=== PATIENT | female | born 1985 | race Caucasian/White ===

== ENCOUNTER → 2016-11-07 | Outpatient (CLI) | payer OTHER ==
[~2016-11-07] MED LIST: /LAMO15TA OR; /LAMO15TA PO; /OXCA30TA OR; /THIA10TA OR; ACET50TA PO; AMLO10TA OR; DEPA500T OR; DEPA500T PO; ENOX40SY SC; FOLI1TAB OR; METH40TA PO; MOTR200T40 PO; MULTIVIT PO; MYCOSTATIN POWDER TOP; PRED10TA2 OR; PRED20TA OR; PRED5TAB OR; PROZ40CA OR; PROZ40CA PO; TRAZ100T OR; TRAZ100T PO; TYLE325T5 PO; VITAPRTA PO
[2016-11-07 06:47] LABS: BASO % 0.6 % (0.0-1.0); EOS # 0.4 K/mm3 (0.0-0.50); EOS % 6.6 % (0.0-3.0); LARGE UNSTAINED CELL # 0.2 K/mm3 (0.0-0.4); LARGE UNSTAINED CELL % 3.5 % (0.0-4.0); LYMPH # 2.8 K/mm3 (1.5-4.5); LYMPH % 40.8 % (24.0-44.0); MEAN CORPUSCULAR HGB CONC 33.8 g/dl (32.0-36.5); MEAN CORPUSCULAR VOLUME 85.9 fl (80.0-96.0); MONO # 0.4 K/mm3 (0.0-0.8); MONO % 6.4 % (0.0-5.0); NEUTROPHILS # 2.9 K/mm3 (1.8-7.7); NEUTROPHILS % 42.2 % (36.0-66.0); PLATELET COUNT, AUTOMATED 277 k/mm3 (150-450); RED CELL DISTRIBUTION WIDTH 13.8 % (11.5-14.5); WHITE BLOOD COUNT 6.9 K/mm3 (4.0-10.0)
[2016-11-07 06:49] LABS: CONTROL LINE UCG INT CTR LINE PRESENT
[2016-11-07 07:10] LABS: ALBUMIN 3.5 GM/DL (3.2-5.2); ALBUMIN/GLOBULIN RATIO 0.78 (1.00-1.93); ALKALINE PHOSPHATASE 87 U/L (45-117); ALT/SGPT 291 U/L (12-78); ANION GAP 8 MEQ/L (8-16); AST/SGOT 237 U/L (15-37); BILIRUBIN,TOTAL 0.5 MG/DL (0.2-1.0); BLOOD UREA NITROGEN 14 MG/DL (7-18); CALCIUM LEVEL 8.8 MG/DL (8.5-10.1); CARBON DIOXIDE LEVEL 25 MEQ/L (21-32); CHLORIDE LEVEL 111 MEQ/L (98-107); CREATININE FOR GFR 0.81 MG/DL (0.55-1.02); GLOMERULAR FILTRATION RATE > 60.0 (>60); GLUCOSE, FASTING 101 MG/DL (70-105); POTASSIUM SERUM 4.2 MEQ/L (3.5-5.1); SODIUM LEVEL 144 MEQ/L (136-145)
[2016-11-07 10:59] LABS: HIV SCRN NEGATIVE (NEGATIVE); HIV SCRN1 NEGATIVE (NEGATIVE)
[2016-11-07 11:02] LABS: CONTROL LINE INT CTR LINE PRESENT
== END ==
LOC: M LAB 06:18
PROVIDERS: ATTEND Family Medicine
DX: Z13.9 Encounter for screening, unspecified (principal); F11.20 Opioid dependence, uncomplicated

== ENCOUNTER 2017-01-26 12:38 | Emergency (ER) | payer OTHER ==
[~2017-01-26] VITALS: Ht 167.6 cm; Wt 72.6 kg
[2017-01-26 12:38] VITALS: BP 133/84
[~2017-01-26 12:38] MED LIST changes: -MOTR200T40 PO; +MOTR200T44 PO
[2017-01-26] MEDS ORDERED: LIDOCAINE 1% MDV 20ML VIAL IM ONE (14:00)
== END 2017-01-26 14:33 | disposition home or self-care (01) ==
LOC: M ED 14:18
DX: S61.011A Laceration without foreign body of right thumb without damage to nail, initial encounter (principal); W25.XXXA Contact with sharp glass, initial encounter; Y92.89 Other specified places as the place of occurrence of the external cause; Y93.G1 Activity, food preparation and clean up; Y99.8 Other external cause status; Z79.899 Other long term (current) drug therapy; G40.909 Epilepsy, unspecified, not intractable, without status epilepticus; B19.20 Unspecified viral hepatitis C without hepatic coma; F41.9 Anxiety disorder, unspecified; F32.9 Major depressive disorder, single episode, unspecified; F11.20 Opioid dependence, uncomplicated

== ENCOUNTER → 2017-08-04 | Outpatient (REF) | payer OTHER ==
[2017-08-04 11:02] LABS: ALBUMIN 3.8 GM/DL (3.2-5.2); ALBUMIN/GLOBULIN RATIO 0.86 (1.00-1.93); BILIRUBIN,DIRECT 0.2 MG/DL (0.0-0.2); BILIRUBIN,TOTAL 0.6 MG/DL (0.2-1.0); TOTAL PROTEIN 8.2 GM/DL (6.4-8.2)
== END ==
LOC: M LAB REF 10:10
PROVIDERS: ATTEND Surgery
DX: Z51.81 Encounter for therapeutic drug level monitoring (principal)

== ENCOUNTER → 2017-08-24 | Outpatient (CLI) | payer MEDICAID, SELFPAY ==
[~2017-08-24] MED LIST changes: +IBUP80TA PO; +VIVI380I IM; +ZOFR20TA PO; +ZOFR4TAB3 PO
== END ==
LOC: M OUTALCOH 13:25
PROVIDERS: ATTEND Psychiatry & Neurology Psychiatry
DX: Z13.9 Encounter for screening, unspecified (principal); F11.20 Opioid dependence, uncomplicated

== ENCOUNTER 2017-09-23 14:00 | Outpatient (RCR) | payer MEDICAID, SELFPAY ==
[~2017-09-23 14:00] MED LIST changes: -IBUP80TA PO; -VIVI380I IM; -ZOFR20TA PO; -ZOFR4TAB3 PO
== END 2017-09-24 | disposition still patient (30) ==
LOC: M OUTALCOH 14:00
PROVIDERS: ATTEND Psychiatry & Neurology Psychiatry
DX: F11.20 Opioid dependence, uncomplicated (principal); F12.20 Cannabis dependence, uncomplicated; F13.20 Sedative, hypnotic or anxiolytic dependence, uncomplicated

== ENCOUNTER 2017-09-28 15:21 | Outpatient (RCR) | payer OTHER, MEDICAID, SELFPAY | END 2017-10-25 | LOC: M OUTALCOH 15:21 | DX: F11.20 Opioid dependence, uncomplicated (principal); F12.20 Cannabis dependence, uncomplicated; F13.20 Sedative, hypnotic or anxiolytic dependence, uncomplicated ==

== ENCOUNTER 2017-10-06 19:00 | Emergency (ER) | payer MEDICAID, OTHER ==
[~2017-10-06] VITALS: Ht 167.6 cm; Wt 77.3 kg
[2017-10-06] MEDS ORDERED: VIVI380I IM (19:09)
[2017-10-06] MEDS ORDERED: ZOFR20TA PO (19:09)
[2017-10-06] MEDS ORDERED: NS 1,000 ML IV ONE (20:30)
[2017-10-06] MEDS ORDERED: ONDANSETRON 4MG/2ML VIAL (J2405) IV ONE (20:30)
[2017-10-06] MEDS ORDERED: KETOROLAC 30 MG/ML VIAL (J1885) IV ONE (20:30)
[2017-10-06 20:59] LABS: MUCUS, URINE RFX SMALL (NEGATIVE); SPECIFIC GRAVITY UR AUTO RFX 1.029 (1.002-1.035); SQUAM EPITHELIAL CELL UR AURFX 5 /HPF (0-6)
[2017-10-06 21:04] LABS: BASO # 0.1 10^3/uL (0.0-0.2); BASO % 0.4 % (0.0-1.0); EOS # 0.1 10^3/uL (0.0-0.50); EOS % 0.9 % (0.0-3.0); IMMATURE GRANULOCYTE % 0.3 % (0-0); LYMPH # 2.7 10^3/uL (1.5-4.5); MEAN CORPUSCULAR HEMOGLOBIN 30.5 pg (27.0-33.0); MEAN CORPUSCULAR VOLUME 89.7 fl (80.0-96.0); MONO # 0.7 10^3/uL (0.0-0.8); MONO % 6.1 % (0.0-5.0); NEUTROPHILS # 7.6 10^3/uL (1.8-7.7); NEUTROPHILS % 68.3 % (36.0-66.0); PLATELET COUNT, AUTOMATED 279 10^3/uL (150-450); RED CELL DISTRIBUTION WIDTH 12.5 % (11.5-14.5); WHITE BLOOD COUNT 11.1 10^3/uL (4.0-10.0)
[2017-10-06 21:35] LABS: ALBUMIN 4.1 GM/DL (3.2-5.2); ALBUMIN/GLOBULIN RATIO 0.76 (1.00-1.93); ALKALINE PHOSPHATASE 99 U/L (45-117); ALT/SGPT 308 U/L (12-78); AMYLASE 62 U/L (25-115); ANION GAP 8 MEQ/L (8-16); AST/SGOT 150 U/L (7-37); BILIRUBIN,DIRECT 0.2 MG/DL (0.0-0.2); BILIRUBIN,TOTAL 0.6 MG/DL (0.2-1.0); BLOOD UREA NITROGEN 17 MG/DL (7-18); CALCIUM LEVEL 9.2 MG/DL (8.5-10.1); CARBON DIOXIDE LEVEL 26 MEQ/L (21-32); CHLORIDE LEVEL 107 MEQ/L (98-107); CREATININE FOR GFR 0.79 MG/DL (0.55-1.02); GLOMERULAR FILTRATION RATE > 60.0 (>60); GLUCOSE, FASTING 96 MG/DL (70-105); POTASSIUM SERUM 4.1 MEQ/L (3.5-5.1); SODIUM LEVEL 141 MEQ/L (136-145); TOTAL PROTEIN 9.5 GM/DL (6.4-8.2)
--- NOTE | 2017-10-06 21:40 | REPUSA ---
Clinical history: Right upper quadrant pain. Findings: The pancreas is limited in visualization secondary to overlying bowel gas, but appears cinda sly unremarkable. The liver demonstrates uniform echotexture and echogenicity, with no mass lesions. The gallbladder contains a small gallstone. There is no gallbladder wall thickening. The common bile duct measures 5 mm and is within normal limits. There is no ascites. The right kidney measures 10.9 c m in length and is unremarkable. Mild diffuse cortical thinning is noted. Impression: 1. Cholelithiasis without evidence of acute cholecystitis. 2. Mild nonspecific thinning of the renal cortex of the right kidney. Follow-up is recommended as cli nically indicated.
[2017-10-06] MEDS ORDERED: ZOFR4TAB3 PO (22:03)
[2017-10-06] MEDS ORDERED: IBUP80TA PO (22:03)
[2017-10-06 22:22] VITALS: BP 115/74
== END 2017-10-06 22:24 | disposition home or self-care (01) ==
LOC: M ED 19:00
DX: K80.70 Calculus of gallbladder and bile duct without cholecystitis without obstruction (principal); E86.0 Dehydration; R56.9 Unspecified convulsions; Z79.899 Other long term (current) drug therapy; Z87.42 Personal history of other diseases of the female genital tract; Z87.19 Personal history of other diseases of the digestive system
CPT/HCPCS: 76705; 80048; 80076; 81001; 81025; 82150; 83690; 85025; 96374; 96375; 99284; J1885; J2405

== ENCOUNTER → 2017-10-15 | Outpatient (REF) | payer OTHER, MEDICAID ==
[~2017-10-15] MED LIST changes: +IBUP80TA PO; +VIVI380I IM; +ZOFR20TA PO; +ZOFR4TAB3 PO
[2017-10-16 10:34] LABS: HEPATITIS B SURFACE ANTIBODY POSITIVE (POSITIVE)
[2017-10-21 08:06] LABS: HEPATITIS C QUANTITATION 3293710 IU/mL (.)
== END ==
LOC: M LAB REF 18:26
PROVIDERS: ATTEND Family Medicine Addiction Medicine
DX: B18.2 Chronic viral hepatitis C (principal)

== ENCOUNTER 2017-10-27 13:59 | Outpatient (RCR) | payer MEDICAID | END 2017-11-25 | LOC: M OUTALCOH 13:59 | DX: F11.20 Opioid dependence, uncomplicated (principal); F12.20 Cannabis dependence, uncomplicated; F13.20 Sedative, hypnotic or anxiolytic dependence, uncomplicated ==

== ENCOUNTER 2017-11-04 08:27 | Day surgery (SDC) | payer OTHER ==
[~2017-11-04 08:27] MED LIST changes: -/LAMO15TA OR; -/LAMO15TA PO; -/OXCA30TA OR; -/THIA10TA OR; -ACET50TA PO; -AMLO10TA OR; -DEPA500T OR; -DEPA500T PO; -ENOX40SY SC; -FOLI1TAB OR; -IBUP80TA PO; +LIDOCAINE 2% INJ 100 MG/5 ML SDV (FOR ANES.) As Ordered; -METH40TA PO; +MIDAZOLAM INJ 2 MG/2 ML VIAL (J2250) As Ordered; -MOTR200T44 PO; -MULTIVIT PO; -MYCOSTATIN POWDER TOP; -PRED10TA2 OR; -PRED20TA OR; -PRED5TAB OR; +PROPOFOL 200 MG/20 ML VIAL As Ordered; -PROZ40CA OR; -PROZ40CA PO; +ROCURONIUM BROMIDE 50 MG/5 ML VIAL As Ordered; -TRAZ100T OR; -TRAZ100T PO; -TYLE325T5 PO; -VITAPRTA PO; -VIVI380I IM; -ZOFR20TA PO; -ZOFR4TAB3 PO; +fentaNYL 250 MCG/5 ML INJECTION (J3010) As Ordered
[2017-11-04 08:59] LABS: CONTROL LINE UCG INT CTR LINE PRESENT; URINE PREG TEST NEGATIVE (NEGATIVE)
[2017-11-04] MEDS: LR 1,000 ML IV (09:24)
[2017-11-04] MEDS ORDERED: KETAMINE HCL 200 MG/20 ML VIAL As Ordered (09:30)
[2017-11-04] MEDS: AMPICILLIN SOD/SULBACTAM SOD 3 GM in D5W MINI-BAG PLUS 100 ML IV (09:40)
[2017-11-04] MEDS ORDERED: GLYCOPYRROLATE INJ 0.2 MG/ML 2 ML VIAL As Ordered ×2 (09:53→10:26)
[2017-11-04] MEDS ORDERED: ESMOLOL INJ 100MG/10ML VIAL As Ordered (10:02)
[2017-11-04] MEDS ORDERED: NEOSTIGMINE 10 MG/10 ML VIAL (J2710) As Ordered (10:26)
[2017-11-04] MEDS ORDERED: KETOROLAC 60 MG/2 ML VIAL (J1885) As Ordered (10:26)
[2017-11-04] MEDS ORDERED: ONDANSETRON 4MG/2ML VIAL (J2405) As Ordered ×2 (10:26→12:23)
[2017-11-04] MEDS ORDERED: dexameTHASONE 4 MG/ML 1ML VIAL (J1100) As Ordered (10:26)
[2017-11-04] MEDS: BUPIVACAINE HCL 0.25% 30 ML VIAL As Ordered (10:50)
[2017-11-04] MEDS: LIDOCAINE 1% SDV INJ 30 ML VIAL As Ordered (10:50)
[2017-11-04] MEDS ORDERED: ACETAMINOPHEN TAB 650MG DOSE (2X325MG) PO (11:30)
[2017-11-04] MEDS ORDERED: KETOROLAC 30 MG/ML VIAL (J1885) IV (11:30)
[2017-11-04] MEDS ORDERED: ACETAMINOPHEN TAB 650MG DOSE (2X325MG) As Ordered (11:37)
[2017-11-04] MEDS ORDERED: ACETAMINOPHEN 500 MG TAB As Ordered (11:39)
[2017-11-04] MEDS: ACETAMINOPHEN 500 MG TAB PO (11:45)
[2017-11-04] MEDS: ONDANSETRON 4MG/2ML VIAL (J2405) IV (12:35)
== END 2017-11-04 14:00 | disposition home or self-care (01) ==
LOC: M SDC 08:27
DX: K80.18 Calculus of gallbladder with other cholecystitis without obstruction (principal); F41.9 Anxiety disorder, unspecified; F32.9 Major depressive disorder, single episode, unspecified; B19.20 Unspecified viral hepatitis C without hepatic coma; F31.9 Bipolar disorder, unspecified; Z86.59 Personal history of other mental and behavioral disorders
CPT/HCPCS: 47562

== ENCOUNTER 2017-12-09 16:00 | Outpatient (RCR) | payer MEDICAID | END 2017-12-23 | disposition still patient (30) | LOC: M OUTALCOH 12-10 13:00 | DX: F11.20 Opioid dependence, uncomplicated (principal); F12.20 Cannabis dependence, uncomplicated; F13.20 Sedative, hypnotic or anxiolytic dependence, uncomplicated ==

== ENCOUNTER → 2017-12-17 | Outpatient (REF) | payer OTHER ==
[2017-12-17 20:08] LABS: CHLAMYDIA DNA AMPLIFICATION NEGATIVE (NEGATIVE); GC DNA AMPLIFICATION NEGATIVE (NEGATIVE)
== END ==
LOC: M SFHCWAGY 17:05
DX: Z11.3 Encounter for screening for infections with a predominantly sexual mode of transmission (principal)
CPT/HCPCS: 87591

== ENCOUNTER → 2017-12-17 | Outpatient (REF) | payer OTHER ==
[2017-12-23 14:13] LABS: HPV HYBRID CAPTURE II Negative (Negative)
== END ==
LOC: M SFHCWAGY 15:44
DX: Z11.3 Encounter for screening for infections with a predominantly sexual mode of transmission (principal)
CPT/HCPCS: 88142

== ENCOUNTER → 2017-12-21 | Outpatient (REF) | payer OTHER, MEDICARE ==
[2017-12-21 16:59] LABS: HIV 1&2 SCREEN CENTAUR NEGATIVE (NEGATIVE)
== END ==
LOC: M SFHCPLAZ 13:46
DX: B18.2 Chronic viral hepatitis C (principal)
CPT/HCPCS: 84460

== ENCOUNTER → 2017-12-22 | Outpatient (CLI) | payer OTHER | LOC: M RAD 12:03 | DX: Z36.9 Encounter for antenatal screening, unspecified (principal); Z3A.09 9 weeks gestation of pregnancy | CPT/HCPCS: 76801 ==

== ENCOUNTER → 2017-12-25 | Outpatient (CLI) | payer MEDICAID ==
[2017-12-25 19:44] LABS: RHEUMATOID FACTOR QUANT < 10.0 IU/ML (0-15.0)
== END ==
LOC: M WUC 15:53
DX: Z01.83 Encounter for blood typing (principal)
CPT/HCPCS: 36415

== ENCOUNTER 2017-12-30 16:00 | Outpatient (RCR) | payer MEDICAID | END 2018-01-23 | LOC: M OUTALCOH 01-06 16:00 | DX: F11.20 Opioid dependence, uncomplicated (principal); F12.20 Cannabis dependence, uncomplicated; F13.20 Sedative, hypnotic or anxiolytic dependence, uncomplicated ==

== ENCOUNTER → 2018-01-05 | Outpatient (REF) | payer MEDICAID ==
[2018-01-15 14:20] LABS: AMPHETAMINES URINE REFLEX NEGATIVE (NEGATIVE); BARBITURATES URINE REFLEX NEGATIVE (NEGATIVE); BENZODIAZEPINES URINE REFLEX NEGATIVE (NEGATIVE); CANNABINOIDS URINE REFLEX NEGATIVE (NEGATIVE); COCAINE METABOLITE URINE REFLE NEGATIVE (NEGATIVE); METHADONE URINE REFLEX NEGATIVE (NEGATIVE); OPIATES URINE REFLEX NEGATIVE (NEGATIVE); PHENCYCLIDINE URINE REFLEX NEGATIVE (NEGATIVE)
== END ==
LOC: M OUTALCOH 01-15 12:50
DX: F12.20 Cannabis dependence, uncomplicated (principal); F11.20 Opioid dependence, uncomplicated; F13.20 Sedative, hypnotic or anxiolytic dependence, uncomplicated
CPT/HCPCS: 80307

== ENCOUNTER → 2018-01-06 | Outpatient (CLI) | payer MEDICAID ==
[2018-01-06 17:24] LABS: CHOLESTEROL LEVEL 196 MG/DL (<200); HDL CHOLESTEROL 46 MG/DL (>40); LDL CHOLESTEROL 122.6 MG/DL (<100); NON-HDL-C 150 MG/DL; TRIGLYCERIDES LEVEL 137 MG/DL (<150)
== END ==
LOC: M WUC 10:42
DX: Z79.899 Other long term (current) drug therapy (principal)
CPT/HCPCS: 80061

== ENCOUNTER 2018-02-03 16:00 | Outpatient (RCR) | payer MEDICAID | END 2018-02-22 | LOC: M OUTALCOH 02-18 16:00 | DX: F11.20 Opioid dependence, uncomplicated (principal); F12.20 Cannabis dependence, uncomplicated; F13.20 Sedative, hypnotic or anxiolytic dependence, uncomplicated ==

== ENCOUNTER 2018-03-05 15:00 | Outpatient (RCR) | payer MEDICAID | END 2018-03-25 | LOC: M OUTALCOH 15:00 | DX: F11.20 Opioid dependence, uncomplicated (principal); F12.20 Cannabis dependence, uncomplicated; F13.20 Sedative, hypnotic or anxiolytic dependence, uncomplicated ==

== ENCOUNTER 2018-04-01 16:00 | Outpatient (RCR) | payer MEDICAID | END 2018-04-24 | LOC: M OUTALCOH 04-07 16:00 | DX: F11.20 Opioid dependence, uncomplicated (principal); F12.20 Cannabis dependence, uncomplicated; F13.20 Sedative, hypnotic or anxiolytic dependence, uncomplicated ==

== ENCOUNTER 2018-05-18 11:42 | Outpatient (RCR) | payer MEDICAID | END 2018-05-25 | LOC: M OUTALCOH 11:42 | DX: F11.20 Opioid dependence, uncomplicated (principal); F12.20 Cannabis dependence, uncomplicated; F13.20 Sedative, hypnotic or anxiolytic dependence, uncomplicated ==

== ENCOUNTER → 2018-05-27 | Outpatient (REF) | payer MEDICAID, OTHER ==
[2018-05-27 14:45] LABS: CHLAMYDIA DNA AMPLIFICATION NEGATIVE (NEGATIVE); GC DNA AMPLIFICATION NEGATIVE (NEGATIVE)
== END ==
LOC: M SFHCWAGY 11:55
DX: Z11.3 Encounter for screening for infections with a predominantly sexual mode of transmission (principal)
CPT/HCPCS: 87591

== ENCOUNTER 2018-07-06 11:04 | Outpatient (RCR) | payer MEDICAID | END 2018-07-25 | LOC: M OUTALCOH 11:04 | DX: F11.20 Opioid dependence, uncomplicated (principal); F12.20 Cannabis dependence, uncomplicated; F13.20 Sedative, hypnotic or anxiolytic dependence, uncomplicated ==

== ENCOUNTER 2018-07-26 14:20 | Outpatient (RCR) | payer MEDICAID | END 2018-08-25 | LOC: M OUTALCOH 08-11 15:00 | DX: F11.20 Opioid dependence, uncomplicated (principal); F12.20 Cannabis dependence, uncomplicated; F13.20 Sedative, hypnotic or anxiolytic dependence, uncomplicated ==

== ENCOUNTER 2018-08-25 14:54 | Emergency (ER) | payer MEDICAID ==
[2018-08-25 17:13] LABS: BASO % 0.3 % (0.0-1.0); EOS # 0.1 10^3/uL (0.0-0.50); EOS % 0.4 % (0.0-3.0); HEMOGLOBIN 15.9 g/dl (12.0-15.5); IMMATURE GRANULOCYTE % 0.4 % (0-3.0); LYMPH # 2.9 10^3/uL (1.5-4.5); LYMPH % 22.4 % (24.0-44.0); MEAN CORPUSCULAR HEMOGLOBIN 31.2 pg (27.0-33.0); MEAN CORPUSCULAR HGB CONC 35.3 g/dl (32.0-36.5); MEAN CORPUSCULAR VOLUME 88.4 fl (80.0-96.0); MONO % 7.8 % (0.0-5.0); NEUTROPHILS # 8.8 10^3/uL (1.8-7.7); NEUTROPHILS % 68.7 % (36.0-66.0); PLATELET COUNT, AUTOMATED 274 10^3/uL (150-450); RED BLOOD COUNT 5.09 10^6/uL (4.00-5.40); RED CELL DISTRIBUTION WIDTH 13.4 % (11.5-14.5); WHITE BLOOD COUNT 12.8 10^3/uL (4.0-10.0)
[2018-08-25 17:25] LABS: CONTROL LINE HCG INT CTR LINE PRESENT; HCG, SERUM QUALITATIVE NEGATIVE (NEGATIVE)
[2018-08-25 17:27] LABS: ANION GAP 2 MEQ/L (8-16); BLOOD UREA NITROGEN 12 MG/DL (7-18); CALCIUM LEVEL 9.4 MG/DL (8.5-10.1); CARBON DIOXIDE LEVEL 32 MEQ/L (21-32); CHLORIDE LEVEL 105 MEQ/L (98-107); CREATININE FOR GFR 0.75 MG/DL (0.55-1.30); GLOMERULAR FILTRATION RATE > 60.0 (>60); GLUCOSE, FASTING 99 MG/DL (70-100); POTASSIUM SERUM 3.8 MEQ/L (3.5-5.1); SODIUM LEVEL 139 MEQ/L (136-145)
[2018-08-25 17:28] LABS: D-DIMER QUANT 272.2 ng/ml (<500)
== END 2018-08-25 18:04 | disposition home or self-care (01) ==
LOC: M ED 14:54
DX: J06.9 Acute upper respiratory infection, unspecified (principal); Z86.69 Personal history of other diseases of the nervous system and sense organs; F11.21 Opioid dependence, in remission; Z83.3 Family history of diabetes mellitus; Z82.3 Family history of stroke; Z79.52 Long term (current) use of systemic steroids; Z79.899 Other long term (current) drug therapy
CPT/HCPCS: 71046

== ENCOUNTER 2018-09-23 13:04 | Outpatient (RCR) | payer MEDICAID | END 2018-09-24 | LOC: M OUTALCOH 13:04 | DX: F11.20 Opioid dependence, uncomplicated (principal); F12.20 Cannabis dependence, uncomplicated; F13.20 Sedative, hypnotic or anxiolytic dependence, uncomplicated ==

== ENCOUNTER 2018-11-08 10:17 | Outpatient (RCR) | payer MEDICAID ==
[~2018-11-08 10:17] MED LIST changes: +/LAMO15TA OR; +/LAMO15TA PO; +/OXCA30TA OR; +/THIA10TA OR; +AMLO10TA OR; +ARIP1TAB4; +DEPA500T OR; +DEPA500T PO; +ENOX40SY SC; +FOLI1TAB OR; +IBUP-1022 PO; +IBUP80TA PO; -LIDOCAINE 2% INJ 100 MG/5 ML SDV (FOR ANES.) As Ordered; +MAPA500T2 PO; +METH40TA PO; -MIDAZOLAM INJ 2 MG/2 ML VIAL (J2250) As Ordered; +MOTR200T44 PO; +MULTIVIT PO; +MYCOSTATIN POWDER TOP; +PRED10TA2 OR; +PRED20TA; +PRED20TA OR; +PRED5TAB OR; -PROPOFOL 200 MG/20 ML VIAL As Ordered; +PROZ40CA OR; +PROZ40CA PO; -ROCURONIUM BROMIDE 50 MG/5 ML VIAL As Ordered; +TRAZ100T OR; +TRAZ100T PO; +TYLE325T5 PO; +VENL150C43; +VENTAER; +VITAPRTA PO; +VIVI380I IM; +ZOFR4TAB14 PO; +ZOFR4TAB16 PO; -fentaNYL 250 MCG/5 ML INJECTION (J3010) As Ordered
== END 2018-11-25 ==
LOC: M OUTALCOH 10:17
PROVIDERS: ATTEND Psychiatry & Neurology Psychiatry
DX: F11.20 Opioid dependence, uncomplicated (principal); F12.20 Cannabis dependence, uncomplicated; F13.20 Sedative, hypnotic or anxiolytic dependence, uncomplicated

== ENCOUNTER 2018-12-22 09:58 | Outpatient (RCR) | payer MEDICAID | END 2018-12-23 | LOC: M OUTALCOH 09:58 | PROVIDERS: ATTEND Psychiatry & Neurology Psychiatry | DX: F11.20 Opioid dependence, uncomplicated (principal); F12.20 Cannabis dependence, uncomplicated; F13.20 Sedative, hypnotic or anxiolytic dependence, uncomplicated ==

== ENCOUNTER → 2018-12-22 | Outpatient (REF) | payer MEDICAID | LOC: M LABDRAW1 11:20 | PROVIDERS: ATTEND Psychiatry & Neurology Psychiatry | DX: F11.20 Opioid dependence, uncomplicated (principal) ==

== ENCOUNTER 2019-02-11 09:05 | Outpatient (RCR) | payer MEDICAID ==
[~2019-02-11 09:05] MED LIST changes: -/LAMO15TA OR; -/LAMO15TA PO; -/OXCA30TA OR; -ENOX40SY SC; +LAMI1TAB8 OR; +LAMI1TAB8 PO; +LOVE1INJ SC; +TRIL1TAB OR
[2019-02-18] MEDS ORDERED: GABA-1171 PO (20:08)
[2019-02-18] MEDS ORDERED: AUGM875T28 PO (22:05)
[2019-02-20] MEDS ORDERED: REGL10TA6 PO (20:03)
== END 2019-02-22 ==
LOC: M OUTALCOH 09:05
PROVIDERS: ATTEND Psychiatry & Neurology Psychiatry
DX: F11.20 Opioid dependence, uncomplicated (principal); F12.20 Cannabis dependence, uncomplicated; F13.20 Sedative, hypnotic or anxiolytic dependence, uncomplicated

== ENCOUNTER 2019-02-18 19:54 | Emergency (ER) | payer MEDICAID, SELFPAY ==
[~2019-02-18] VITALS: Ht 167.6 cm; Wt 84.1 kg
[2019-02-18] MEDS ORDERED: GABA-1171 PO (20:08)
[2019-02-18] MEDS ORDERED: ADACEL/BOOSTRIX VACCINE (DIPHTH/PERTUSS/ACELL/TETANUS)0.5ML SYR (90715) IM ONE (21:00)
[2019-02-18] MEDS ORDERED: LIDOCAINE W/EPINEPHRINE 1% 20ML VIAL SC ONE (21:15)
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
[2019-02-18] MEDS ORDERED: AUGM875T28 PO (22:05)
[2019-02-18] MEDS ORDERED: AUGMENTIN 875 MG TAB PO ONE (22:15)
[2019-02-18 22:27] VITALS: BP 141/94
== END 2019-02-18 22:28 | disposition home or self-care (01) ==
LOC: M ED 19:54
DX: S01.81XA Laceration without foreign body of other part of head, initial encounter (principal); S01.01XA Laceration without foreign body of scalp, initial encounter; S02.2XXA Fracture of nasal bones, initial encounter for closed fracture; Y04.8XXA Assault by other bodily force, initial encounter; Y92.410 Unspecified street and highway as the place of occurrence of the external cause; Y93.9 Activity, unspecified; Y99.9 Unspecified external cause status; F31.9 Bipolar disorder, unspecified; B15.9 Hepatitis A without hepatic coma; B19.20 Unspecified viral hepatitis C without hepatic coma; Z79.899 Other long term (current) drug therapy

== ENCOUNTER 2019-02-20 17:22 | Emergency (ER) | payer MEDICAID, SELFPAY ==
[~2019-02-20] VITALS: Ht 167.6 cm; Wt 81.8 kg
[~2019-02-20 17:22] MED LIST changes: +AUGM875T28 PO; +GABA-1171 PO
[2019-02-20] MEDS ORDERED: diphenhydrAMINE INJ 50MG/ML VIAL (J1200) IV STA (18:29)
[2019-02-20] MEDS ORDERED: KETOROLAC 30 MG/ML VIAL (J1885) IV ONE (18:30)
[2019-02-20] MEDS ORDERED: METOCLOPRAMIDE INJ 10MG/2ML VIAL (J2765) IV ONE (18:30)
[2019-02-20] MEDS ORDERED: NS 1,000 ML IV ONE (18:30)
[2019-02-20] MEDS ORDERED: REGL10TA6 PO (20:03)
[2019-02-20 20:29] VITALS: BP 101/63
== END 2019-02-20 21:00 | disposition home or self-care (01) ==
LOC: EEVIPCON 17:22 → M ED 17:22
DX: F07.81 Postconcussional syndrome (principal); B19.20 Unspecified viral hepatitis C without hepatic coma; Z79.899 Other long term (current) drug therapy; F11.10 Opioid abuse, uncomplicated; F17.210 Nicotine dependence, cigarettes, uncomplicated
CPT/HCPCS: 96361; 96374; 96375; 99284; J1200; J1885; J2765

== ENCOUNTER → 2019-02-23 | Outpatient (REF) | payer MEDICAID, SELFPAY ==
[~2019-02-23] MED LIST changes: +LEVA1TAB2 PO; +METO10TA2 PO; +REGL10TA6 PO; +TOPA1TAB PO
[2019-02-23 18:00] LABS: APPEARANCE, URINE CLEAR (CLEAR); BACTERIA, URINE AUTO NEGATIVE (NEGATIVE); BILIRUBIN, URINE AUTO NEGATIVE (NEGATIVE); BLOOD, URINE BLOOD NEGATIVE (NEGATIVE); COLOR, URINE YELLOW (YELLOW); GLUCOSE, URINE (UA) AUTO NEGATIVE (NEGATIVE); KETONE, URINE AUTO NEGATIVE (NEGATIVE); LEUKOCYTE ESTERASE, URINE AUTO NEGATIVE (NEGATIVE); NITRITE, URINE AUTO NEGATIVE (NEGATIVE); PROTEIN, URINE AUTO NEGATIVE (NEGATIVE); RBC, URINE AUTO 1 /HPF (0-3); SPECIFIC GRAVITY URINE AUTO 1.016 (1.002-1.035); SQUAMOUS EPITHELIAL CELL UR AU 1 /HPF (0-6); WBC, URINE AUTO 0 /HPF (0-3)
== END ==
LOC: M LAB REF 16:42
PROVIDERS: ATTEND Family Medicine Adult Medicine
DX: R35.0 Frequency of micturition (principal); R30.0 Dysuria

== ENCOUNTER 2019-02-24 14:32 | Inpatient (IN) | payer MEDICAID, SELFPAY ==
[~2019-02-24] VITALS: Ht 165.1 cm; Wt 89.7 kg
[~2019-02-24 14:32] MED LIST changes: -LEVA1TAB2 PO; -METO10TA2 PO; -TOPA1TAB PO
[2019-02-24] MEDS ORDERED: NS 1,000 ML IV ONE (15:30)
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
[2019-02-24 16:12] LABS: BASO # 0.1 10^3/uL (0.0-0.2); BASO % 0.5 % (0.0-1.0); EOS # 0.4 10^3/uL (0.0-0.50); EOS % 4.5 % (0.0-3.0); HEMATOCRIT 41.7 % (36.0-47.0); HEMOGLOBIN 14.2 g/dl (12.0-15.5); LYMPH # 1.7 10^3/uL (1.5-4.5); MEAN CORPUSCULAR HEMOGLOBIN 31.5 pg (27.0-33.0); MEAN CORPUSCULAR HGB CONC 34.1 g/dl (32.0-36.5); MEAN CORPUSCULAR VOLUME 92.5 fl (80.0-96.0); MONO # 0.7 10^3/uL (0.0-0.8); MONO % 7.2 % (0.0-5.0); NEUTROPHILS # 6.9 10^3/uL (1.8-7.7); NEUTROPHILS % 70.4 % (36.0-66.0); PLATELET COUNT, AUTOMATED 212 10^3/uL (150-450); RED BLOOD COUNT 4.51 10^6/uL (4.00-5.40); WHITE BLOOD COUNT 9.8 10^3/uL (4.0-10.0)
--- NOTE | 2019-02-24 16:50 | REP ---
Chest two views HISTORY: Altered mental status Comparison: None The lungs are clear. The heart is normal in size. The pulmonary vasculature is normal in appearance. The bony structure is intact. IMPRESSION: No acute disease. Electronically Signed by Jareth Hogue MD 02/24/2019 04:41 P
[2019-02-24] MEDS ORDERED: AUGM875T28 PO (16:56)
[2019-02-24] MEDS ORDERED: METO10TA2 PO (16:56)
[2019-02-24] MEDS ORDERED: GABA-1171 PO (16:56)
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
[2019-02-24 17:23] LABS: APPEARANCE, URINE CLEAR (CLEAR); BACTERIA, URINE AUTO NEGATIVE (NEGATIVE); BILIRUBIN, URINE AUTO NEGATIVE (NEGATIVE); BLOOD, URINE BLOOD NEGATIVE (NEGATIVE); COLOR, URINE STRAW (YELLOW); GLUCOSE, URINE (UA) AUTO NEGATIVE (NEGATIVE); KETONE, URINE AUTO NEGATIVE (NEGATIVE); LEUKOCYTE ESTERASE, URINE AUTO NEGATIVE (NEGATIVE); NITRITE, URINE AUTO NEGATIVE (NEGATIVE); PROTEIN, URINE AUTO NEGATIVE (NEGATIVE); RBC, URINE AUTO 1 /HPF (0-3); SPECIFIC GRAVITY URINE AUTO 1.005 (1.002-1.035); SQUAMOUS EPITHELIAL CELL UR AU 5 /HPF (0-6); UROBILINOGEN, URINE AUTO 0.2 mg/dL (0.0-2.0); WBC, URINE AUTO 1 /HPF (0-3)
[2019-02-24 18:20] VITALS: BP 132/67
[2019-02-24] MEDS ORDERED: METOCLOPRAMIDE 10 MG TAB PO PRN (18:30)
[2019-02-24 18:41] LABS: BLOOD UREA NITROGEN 9 MG/DL (7-18); CALCIUM LEVEL 8.4 MG/DL (8.5-10.1); CARBON DIOXIDE LEVEL 26 MEQ/L (21-32); CHLORIDE LEVEL 107 MEQ/L (98-107); CREATININE FOR GFR 0.82 MG/DL (0.55-1.30); GLOMERULAR FILTRATION RATE > 60.0 (>60); GLUCOSE, FASTING 95 MG/DL (70-100); POTASSIUM SERUM 3.9 MEQ/L (3.5-5.1); SODIUM LEVEL 138 MEQ/L (136-145)
[2019-02-24 18:44] LABS: ALBUMIN 3.2 GM/DL (3.2-5.2); ALT/SGPT 192 U/L (12-78); BILIRUBIN,TOTAL 0.6 MG/DL (0.2-1.0); BLOOD UREA NITROGEN 9 MG/DL (7-18); CALCIUM LEVEL 8.3 MG/DL (8.5-10.1); CARBON DIOXIDE LEVEL 25 MEQ/L (21-32); CHLORIDE LEVEL 107 MEQ/L (98-107); CREATININE FOR GFR 0.83 MG/DL (0.55-1.30); GLOMERULAR FILTRATION RATE > 60.0 (>60); GLUCOSE, FASTING 97 MG/DL (70-100); POTASSIUM SERUM 3.9 MEQ/L (3.5-5.1); SODIUM LEVEL 138 MEQ/L (136-145)
[2019-02-24 18:54] LABS: PROLACTIN 4.4 NG/ML
[2019-02-24] MEDS: ACETAMINOPHEN TAB 650MG DOSE (2X325MG) PO PRN (18:59)
[2019-02-24 19:23] VITALS: BP 128/67
[2019-02-24] MEDS: D5W/0.45% SODIUM CHLORIDE 1,000 ML IV SCH (19:57)
[2019-02-24] MEDS: TOPIRAMATE (TopAMAX) 25 MG TAB PO SCH (20:10)
[2019-02-24] MEDS: GABAPENTIN 100 MG CAP PO SCH (20:11)
[2019-02-24] MEDS: AUGMENTIN 875 MG TAB PO SCH (20:11)
[2019-02-24 23:18] VITALS: BP 136/82
[2019-02-25 03:40] VITALS: BP 105/69
[2019-02-25] MEDS: D5W/0.45% SODIUM CHLORIDE 1,000 ML IV SCH (03:50)
[2019-02-25] MEDS: ACETAMINOPHEN TAB 650MG DOSE (2X325MG) PO PRN ×3 (04:07→17:29)
[2019-02-25 04:29] LABS: HEMOGLOBIN 13.8 g/dl (12.0-15.5); MEAN CORPUSCULAR HEMOGLOBIN 31.5 pg (27.0-33.0); MEAN CORPUSCULAR HGB CONC 32.1 g/dl (32.0-36.5); MEAN CORPUSCULAR VOLUME 98.2 fl (80.0-96.0); PLATELET COUNT, AUTOMATED 176 10^3/uL (150-450); RED BLOOD COUNT 4.38 10^6/uL (4.00-5.40); WHITE BLOOD COUNT 6.5 10^3/uL (4.0-10.0)
[2019-02-25 04:38] LABS: BLOOD UREA NITROGEN 5 MG/DL (7-18); CALCIUM LEVEL 7.6 MG/DL (8.5-10.1); CARBON DIOXIDE LEVEL 21 MEQ/L (21-32); CHLORIDE LEVEL 111 MEQ/L (98-107); CREATININE FOR GFR 0.74 MG/DL (0.55-1.30); GLOMERULAR FILTRATION RATE > 60.0 (>60); GLUCOSE, FASTING 98 MG/DL (70-100); POTASSIUM SERUM 3.7 MEQ/L (3.5-5.1); SODIUM LEVEL 136 MEQ/L (136-145)
[2019-02-25 06:33] LABS: AMPHETAMINES LEVEL URINE NEGATIVE (NEGATIVE); BARBITURATES URINE NEGATIVE (NEGATIVE); BENZODIAZEPINES URINE POSITIVE (NEGATIVE); CANNABINOIDS URINE POSITIVE (NEGATIVE); COCAINE METABOLITE URINE NEGATIVE (NEGATIVE); METHADONE URINE NEGATIVE (NEGATIVE); OPIATES URINE NEGATIVE (NEGATIVE); PHENCYCLIDINE URINE NEGATIVE (NEGATIVE)
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
[2019-02-25 08:00] VITALS: BP 104/66
[2019-02-25] MEDS: AUGMENTIN 875 MG TAB PO SCH ×2 (09:03→19:59)
[2019-02-25] MEDS: TOPIRAMATE (TopAMAX) 25 MG TAB PO SCH ×2 (09:03→20:00)
[2019-02-25] MEDS: GABAPENTIN 100 MG CAP PO SCH ×3 (09:03→19:59)
[2019-02-25 12:00] VITALS: BP 118/80
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
--- NOTE | 2019-02-25 12:47 | NUR ---
Pt w/ generalized weakness of oral motor structures and overall fatigue. Otherwise, no signs of oropharyngeal dysphagia. Recommend regular solids, thin liquids. Will f/u x1 dysphagia tx for compensatory strategy training to maximize safety and efficiency of PO intake w/ fatigue & weak oral structures. Addendum: 02/25/[address] [facility] Amended: Links added.
--- NOTE | 2019-02-25 13:40 | REP ---
MRI LUMBAR SPINE WITHOUT CONTRAST: HISTORY: Urinary incontinence. There is no disc bulge or herniation at the L1-2 through L5-S1 levels. The nerves exit the neural foramina without compression. The conus medullaris is normal in appearance terminating at the level of the L1-2 intervertebral disc. Normal signal intensity is present in the lumbar intervertebral disc and vertebral bodies. IMPRESSION: There is no disc bulge or herniation. Electronically Signed by Jareth Hogue MD 02/25/2019 01:42 P
[2019-02-25 16:00] VITALS: BP 122/65
[2019-02-25 20:00] VITALS: BP 159/74
[2019-02-25 23:57] VITALS: BP 122/57
[2019-02-26] MEDS: ACETAMINOPHEN TAB 650MG DOSE (2X325MG) PO PRN (02:05)
[2019-02-26 04:00] VITALS: BP 112/66
[2019-02-26] MEDS ORDERED: LevoFLOXacin 500 MG TABLET PO SCH (06:00)
[2019-02-26 08:00] VITALS: BP 123/78
[2019-02-26] MEDS: AUGMENTIN 875 MG TAB PO SCH (08:17)
[2019-02-26] MEDS: TOPIRAMATE (TopAMAX) 25 MG TAB PO SCH (08:17)
[2019-02-26] MEDS: GABAPENTIN 100 MG CAP PO SCH (08:17)
[2019-02-26] MEDS ORDERED: SLF 3 ML SYR IV PRN (09:00)
[2019-02-26] MEDS ORDERED: TOPA1TAB PO (09:07)
[2019-02-26] MEDS ORDERED: LEVA1TAB2 PO (09:07)
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
[2019-02-26] MEDS ORDERED: SLF 3 ML SYR IV SCH (14:00)
== END 2019-02-26 10:00 | disposition home or self-care (01) | DRG 54 ==
LOC: M ED 14:32 → M ED INP 16:14 → M PCU 18:15 → OBSVTOIN 02-25 12:33 → INTOOBSV 02-25 12:33
PROVIDERS: ADMIT General Practice; ATTEND Internal Medicine
DX: F07.81 Postconcussional syndrome (principal); F11.10 Opioid abuse, uncomplicated; R32 Unspecified urinary incontinence; G44.309 Post-traumatic headache, unspecified, not intractable; F31.9 Bipolar disorder, unspecified; F60.3 Borderline personality disorder; Z79.2 Long term (current) use of antibiotics; Z79.899 Other long term (current) drug therapy

== ENCOUNTER → 2019-03-30 | Outpatient (REF) | payer MEDICAID, SELFPAY ==
[~2019-03-30] MED LIST changes: +LEVA1TAB2 PO; +METO10TA2 PO; +TOPA1TAB PO
[2019-03-30 13:49] LABS: BASO # 0.1 10^3/uL (0.0-0.2); BASO % 0.8 % (0.0-1.0); EOS # 0.5 10^3/uL (0.0-0.50); EOS % 7.6 % (0.0-3.0); HEMATOCRIT 45.3 % (36.0-47.0); HEMOGLOBIN 15.4 g/dl (12.0-15.5); LYMPH # 2.4 10^3/uL (1.5-4.5); MEAN CORPUSCULAR HEMOGLOBIN 32.1 pg (27.0-33.0); MEAN CORPUSCULAR VOLUME 94.4 fl (80.0-96.0); MONO # 0.6 10^3/uL (0.0-0.8); MONO % 9.5 % (0.0-5.0); NEUTROPHILS # 2.7 10^3/uL (1.8-7.7); NEUTROPHILS % 42.9 % (36.0-66.0); PLATELET COUNT, AUTOMATED 212 10^3/uL (150-450); WHITE BLOOD COUNT 6.2 10^3/uL (4.0-10.0)
[2019-03-30 14:02] LABS: ALBUMIN 3.2 GM/DL (3.2-5.2); ALT/SGPT 200 U/L (12-78); BILIRUBIN,TOTAL 0.3 MG/DL (0.2-1.0); BLOOD UREA NITROGEN 11 MG/DL (7-18); CALCIUM LEVEL 8.4 MG/DL (8.5-10.1); CARBON DIOXIDE LEVEL 22 MEQ/L (21-32); CHLORIDE LEVEL 116 MEQ/L (98-107); CHOLESTEROL LEVEL 176 MG/DL (<200); CHOLESTEROL RISK RATIO 6.068 (<5); FREE T4 0.95 NG/DL (0.76-1.46); GLOMERULAR FILTRATION RATE > 60.0 (>60); GLUCOSE, FASTING 132 MG/DL (70-100); HDL CHOLESTEROL 29 MG/DL (>40); LDL CHOLESTEROL 95 MG/DL (<100); NON-HDL-C 147 MG/DL; POTASSIUM SERUM 3.9 MEQ/L (3.5-5.1); SODIUM LEVEL 145 MEQ/L (136-145); TOTAL PROTEIN 7.2 GM/DL (6.4-8.2); TRIGLYCERIDES LEVEL 259 MG/DL (<150)
[2019-03-30 14:03] LABS: TOTAL 25(OH) VITAMIN D 19.6 NG/ML (30.0-100.0)
[2019-03-30 15:15] LABS: HEMOGLOBIN A1c 5.4 %
== END ==
LOC: M LAB REF 12:39
PROVIDERS: ATTEND Nurse Practitioner Family
DX: Z13.9 Encounter for screening, unspecified (principal)

== ENCOUNTER 2019-06-07 15:58 | Outpatient (RCR) | payer MEDICAID, OTHER | END 2019-06-25 | LOC: M OUTALCOH 15:58 | PROVIDERS: ATTEND Psychiatry & Neurology Psychiatry | DX: F11.20 Opioid dependence, uncomplicated (principal); F12.20 Cannabis dependence, uncomplicated; F13.20 Sedative, hypnotic or anxiolytic dependence, uncomplicated ==

== ENCOUNTER → 2019-06-30 | Outpatient (CLI) | payer OTHER ==
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
== END ==
LOC: M RAD 16:57
PROVIDERS: ATTEND Physician Assistant
DX: M25.572 Pain in left ankle and joints of left foot (principal)

== ENCOUNTER 2019-07-02 19:37 | Emergency (ER) | payer OTHER ==
[~2019-07-02] VITALS: Ht 167.6 cm; Wt 38.6 kg
[2019-07-02] MEDS ORDERED: VIVI380I IM (19:56)
[2019-07-02 21:49] VITALS: BP 128/94
== END 2019-07-02 21:51 | disposition home or self-care (01) ==
LOC: M ED 19:37
DX: F43.0 Acute stress reaction (principal); F31.9 Bipolar disorder, unspecified; F11.21 Opioid dependence, in remission; Z79.899 Other long term (current) drug therapy

== ENCOUNTER 2019-07-29 15:59 | Emergency (ER) | payer MEDICAID, OTHER ==
[~2019-07-29] VITALS: Ht 167.6 cm; Wt 87.9 kg
[2019-07-29] MEDS ORDERED: GABA-843 PO (16:20)
[2019-07-29] MEDS ORDERED: medical marijuana (16:21)
[2019-07-29 18:37] VITALS: BP 134/75
== END 2019-07-29 18:38 | disposition home or self-care (01) ==
LOC: M ED 15:59
DX: F41.9 Anxiety disorder, unspecified (principal)

== ENCOUNTER 2019-07-31 04:15 | Emergency (ER) | payer OTHER ==
[~2019-07-31] VITALS: Ht 165.1 cm; Wt 81.8 kg
[~2019-07-31 04:15] MED LIST changes: +GABA-843 PO; +medical marijuana
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
[2019-07-31 06:10] VITALS: BP 115/64
== END 2019-07-31 06:36 | disposition left against medical advice (07) ==
LOC: M ED 04:15
DX: S00.83XA Contusion of other part of head, initial encounter (principal); Y04.8XXA Assault by other bodily force, initial encounter; Y07.410 Brother, perpetrator of maltreatment and neglect; Y92.018 Other place in single-family (private) house as the place of occurrence of the external cause; F11.10 Opioid abuse, uncomplicated; Z79.899 Other long term (current) drug therapy
CPT/HCPCS: 36415; 70450; 70486; 72125; 99283; G0480

== ENCOUNTER 2019-10-27 19:36 | Inpatient (IN) | payer OTHER ==
[~2019-10-27] VITALS: Ht 165.1 cm; Wt 83.9 kg
[~2019-10-27 19:36] MED LIST changes: -ARIP1TAB PO; -AZIT-12 PO; -OLAN5TAB PO; -TRAZ-186 PO; -VENL75CA47 PO
[2019-10-27 20:19] LABS: BASO # 0.1 10^3/uL (0.0-0.2); BASO % 0.8 % (0.0-1.0); EOS # 0.1 10^3/uL (0.0-0.5); EOS % 1.5 % (0.0-3.0); HEMOGLOBIN 14.5 g/dl (12.0-15.5); LYMPH # 2.6 10^3/uL (1.5-5.0); LYMPH % 35.2 % (24.0-44.0); MEAN CORPUSCULAR VOLUME 91.1 fl (80.0-96.0); MONO # 0.5 10^3/uL (0.0-0.8); NEUTROPHILS % 55.2 % (36.0-66.0); PLATELET COUNT, AUTOMATED 185 10^3/uL (150-450); RED BLOOD COUNT 4.83 10^6/uL (4.00-5.40); WHITE BLOOD COUNT 7.3 10^3/uL (4.0-10.0)
[2019-10-27] MEDS ORDERED: NS 1,000 ML IV ONE (20:30)
[2019-10-27 20:41] LABS: HCG, SERUM QUALITATIVE NEGATIVE (NEGATIVE)
[2019-10-27 20:51] LABS: ACETAMINOPHEN LEVEL < 2.0 UG/ML (10.0-30.0); ALBUMIN 3.8 GM/DL (3.2-5.2); ALT/SGPT 79 U/L (12-78); BILIRUBIN,DIRECT 0.2 MG/DL (0.0-0.2); BILIRUBIN,TOTAL 0.9 MG/DL (0.2-1.0); BLOOD UREA NITROGEN 14 MG/DL (7-18); CALCIUM LEVEL 8.6 MG/DL (8.5-10.1); CARBON DIOXIDE LEVEL 19 MEQ/L (21-32); CHLORIDE LEVEL 112 MEQ/L (98-107); CPK CREATINE PHOSPHOKINASE 299 U/L (26-192); CREATININE FOR GFR 0.85 MG/DL (0.55-1.30); ETHYL ALCOHOL (ETHANOL) < 0.003 % (0.000-0.010); GLOMERULAR FILTRATION RATE > 60.0 (>60); GLUCOSE, FASTING 111 MG/DL (70-100); SALICYLATE LEVEL < 1.7 MG/DL (5.0-30.0); SODIUM LEVEL 141 MEQ/L (136-145); TOTAL PROTEIN 7.6 GM/DL (6.4-8.2)
[2019-10-28] VITALS (18 sets, daily range): BP systolic 109–133; BP diastolic 56–92; O2SAT 97–99
[2019-10-28 02:07] LABS: AMPHETAMINES LEVEL URINE NEGATIVE (NEGATIVE); BARBITURATES URINE NEGATIVE (NEGATIVE); BENZODIAZEPINES URINE POSITIVE (NEGATIVE); CANNABINOIDS URINE POSITIVE (NEGATIVE); COCAINE METABOLITE URINE NEGATIVE (NEGATIVE); METHADONE URINE NEGATIVE (NEGATIVE); OPIATES URINE NEGATIVE (NEGATIVE); PHENCYCLIDINE URINE NEGATIVE (NEGATIVE)
[2019-10-28] MEDS ORDERED: PROPOFOL 1,000 MG/100 ML VIAL As Ordered ONE ×2 (02:35→11:12)
[2019-10-28] MEDS ORDERED: ETOMIDATE INJ 20MG/10ML VIAL IV ONE (02:45)
[2019-10-28] MEDS ORDERED: PROPOFOL 1,000 MG in IV 1 EA IV SCH ×2 (02:45→05:03)
[2019-10-28] MEDS ORDERED: SUCCINYLCHOLINE INJ 200 MG/10 ML VIAL (J0330) IV ONE (02:45)
[2019-10-28] MEDS ORDERED: CHARCOAL ACTIVATED LIQUID 25 GM/120 ML BTL PO ONE (03:15)
[2019-10-28] MEDS ORDERED: METO10TA2 PO (04:51)
[2019-10-28] MEDS ORDERED: TRAZ-186 PO (04:51)
[2019-10-28] MEDS ORDERED: OLAN5TAB PO (04:51)
[2019-10-28] MEDS ORDERED: ARIP1TAB PO (04:51)
[2019-10-28] MEDS ORDERED: GABA-843 PO (04:51)
[2019-10-28] MEDS ORDERED: VENL75CA47 PO (04:51)
[2019-10-28] MEDS ORDERED: AZIT-12 PO (04:51)
[2019-10-28] MEDS ORDERED: VIVI380I IM (04:51)
[2019-10-28] MEDS ORDERED: MIDAZOLAM INJ 2 MG/2 ML VIAL (J2250) IV PRN (05:15)
[2019-10-28] MEDS: D5W/0.45% SODIUM CHLORIDE 1,000 ML IV SCH ×2 (06:26→19:40)
--- NOTE | 2019-10-28 06:50 | REP ---
Clinical: Status post intubation. Technique: Two AP views of the chest. Findings: Final image at 03:04 a.m. demonstrates endotracheal tube and nasogastric tube in satisfactory position. Mediastinum and cardiac silhouette normal. Lung fernández are clear. No focal consolidation. No effusion. No pneumothorax. Skeletal structures intact. Impression: 1. Lines and tubes in satisfactory position. 2. No focal consolidation. Electronically Signed by Janusz Parada MD 10/28/2019 06:41 A
--- NOTE | 2019-10-28 07:49 | REP ---
Clinical: Intubation . Comparison: 10/28/2019 . Findings: Endotracheal tube and nasogastric tube in satisfactory position. The mediastinum and cardiac silhouette are stable and within normal limits for portable technique. The lung fernández are clear without acute consolidation, effusion, or pneumothorax. Skeletal structures are intact. Impression: No acute cardiopulmonary process appreciated. Electronically Signed by Janusz Parada MD 10/28/2019 07:41 A
[2019-10-28 07:56] LABS: ABG BASE EXCESS -2.6 (-2.0-2.0); ABG HCO3 21.4 MEQ/L (22.0-26.0); ABG O2 SATURATION 97.8 % (95.0-99.0); ABG PARTIAL PRESSURE CO2 34.8 mmHg (35.0-45.0); ABG PARTIAL PRESSURE O2 99.3 mmHg (75.0-100.0); ABG STANDARD HCO3 22.4 MEQ/L (22.0-26.0); ABG TOTAL CO2 22.5 MEQ/L (22.0-29.0); ABG pH (ARTERIAL) 7.407 UNITS (7.350-7.450)
[2019-10-28 08:17] LABS: HEMATOCRIT 39.6 % (36.0-47.0); HEMOGLOBIN 13.5 g/dl (12.0-15.5); MEAN CORPUSCULAR HGB CONC 34.1 g/dl (32.0-36.5); PLATELET COUNT, AUTOMATED 210 10^3/uL (150-450); RED BLOOD COUNT 4.35 10^6/uL (4.00-5.40); WHITE BLOOD COUNT 7.9 10^3/uL (4.0-10.0)
--- NOTE | 2019-10-28 08:32 | ECGEPIP ---
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
[2019-10-28 08:40] LABS: ACETAMINOPHEN LEVEL < 2.0 UG/ML (10.0-30.0); ALBUMIN 3.4 GM/DL (3.2-5.2); ALT/SGPT 71 U/L (12-78); BILIRUBIN,DIRECT 0.3 MG/DL (0.0-0.2); BILIRUBIN,TOTAL 0.9 MG/DL (0.2-1.0); BLOOD UREA NITROGEN 9 MG/DL (7-18); CALCIUM LEVEL 8.3 MG/DL (8.5-10.1); CARBON DIOXIDE LEVEL 23 MEQ/L (21-32); CHLORIDE LEVEL 112 MEQ/L (98-107); CPK CREATINE PHOSPHOKINASE 182 U/L (26-192); CREATININE FOR GFR 0.78 MG/DL (0.55-1.30); GLOMERULAR FILTRATION RATE > 60.0 (>60); GLUCOSE, FASTING 105 MG/DL (70-100); MAGNESIUM LEVEL 2.3 MG/DL (1.8-2.4); PHOSPHORUS LEVEL 2.3 MG/DL (2.5-4.9); POTASSIUM SERUM 3.3 MEQ/L (3.5-5.1); SODIUM LEVEL 143 MEQ/L (136-145)
--- NOTE | 2019-10-28 09:02 | HPE ---
DATE OF ADMISSION: 10/28/2019 CHIEF COMPLAINT: Suicide attempt, intentional overdose. HISTORY OF PRESENT ILLNESS: Ms. Concepcion is a 34-year-old female with a past medical history of bipolar disorder, borderline personality disorder, depression, anxiety, and history of opioid abuse in the past who presented after an intentional drug overdose and intended suicide attempt. History is obtained from the patient's chart and from other collateral information as the patient was intubated on examination and unable to provide any history. As per ED physician, the patient reportedly was on the phone with a family member where she disclosed she was planning an intentional drug overdose for suicide attempt. EMS was called then and the patient was found in her car and at the time was still awake and able to converse. She told EMS she took an unknown quantity of Zyprexa, trazodone and aripiprazole at approximately 06:15 p.m. She denied any alcohol use or other substance use at that time. Upon arrival to the ED, the patient was still responsive initially; however, she was noted to be less and less responsive in the emergency room. She was no longer arousable and did not have a gag reflex and so was intubated by the ED physician. After intubation, the patient had an orogastric (OG) tube placed and she was administered activated charcoal as recommended by Poison Control. She was then admitted to the intensive care unit (ICU) for further management. PAST MEDICAL AND PAST SURGICAL HISTORY: 1. Bipolar disorder. 2. Borderline personality disorder. 3. Depression. 4. Anxiety. 5. Previous suicide attempt. 6. Previous IV opioid abuse. 7. Cholecystectomy. 8. History of seizure in the past. 9. History of hepatitis C. SOCIAL HISTORY: Former history of IV heroin use, quit 2 years ago. No tobacco use history. ALLERGIES: NO KNOWN DRUG ALLERGIES. HOME MEDICATIONS: Aripiprazole 10 mg daily, gabapentin 300 mg q.i.d., metoclopramide p.r.n., naltrexone, olanzapine 5 mg q.h.s., trazodone 50 mg p.r.n., venlafaxine 75 mg daily. PHYSICAL EXAMINATION: Temperature 98.4, pulse 89, blood pressure 139/94, respirations 20, blood O2 sat 99% on 30% FIO2. General: The patient is intubated and sedated on propofol. She is minimally responsive to painful stimuli. HEENT: Normocephalic, atraumatic. Pupils are reactive to light bilaterally. There is no scleral icterus. Mucous membranes are moist. Neck is supple. Trachea is midline. There is no palpable adenopathy. Cardiovascular: Regular rate and rhythm. Normal S1, S2. Unable to appreciate any murmurs. Pulmonary: Coarse ventilated breath sounds bilaterally, but no wheezing, rales or rhonchi. Abdomen: Soft, nontender, nondistended. No palpable mass. Extremities: No significant edema in bilateral lower extremities. There are what appear to be intentional lacerations on her forearm on the left side as well as on her lower extremities bilaterally. LABORATORY DATA: WBC 7.3, hemoglobin 14.5, platelets of 185. Chemistry: Sodium is 141, potassium 4.0, chloride is 112, bicarb is 19, BUN is 14, creatinine is 0.85, glucose is 111, anion gap is 10, AST 68, ALT 79, alkaline phosphatase 74, CPK 299. TSH within normal limits. HCG is negative. Urine toxicology is positive for benzodiazepines and cannabis. Tylenol, salicylate and alcohol level was negative. IMAGING: Chest x-ray shows ET tube in position. There is a necklace which is obscuring the tip of the ET tube, but it appears to be in good position. There is some mild right upper lobe atelectasis noted. There is a radiopaque object in the area of the stomach which is unclear if it is overlying the skin. ASSESSMENT: Ms. Concepcion is a 34-year-old female with an extensive psychiatric history, with a previous history of suicide attempt in the past, history of previous IV drug use, and hepatitis C who presents with an intentional overdose of her psychiatric medications for an attempted suicide attempt. The patient was initially responsive and able to endorse taking an unknown amount of trazodone, aripiprazole and olanzapine. In the ED, she was noted to be less responsive and was therefore intubated for airway protection. She also received a dose of activated charcoal as per the recommendations of Poison Control. - The patient is on mechanical ventilation, currently with PRVC with settings of 400/16/30/5. Will continue with daily ABGs and chest x-rays while intubated and continue with vent bundle care with head of the head of bed elevation and chlorhexidine mouthwash. - EKG did not show any significant arrhythmia and there is some mild QTC prolongation. Will continue to monitor on telemetry as well as with daily EKGs. - Continue with propofol while intubated to target a [place] of 2 or 3. Will continue with daily sedation vacation and weaning trials as appropriate. - will hold sedation and perform weaning trial tomorrow for possible extubation. - Will followup her LFTs as well as CPK. She does have some mild transaminitis likely due to her previous history of hepatitis C which does not appear to have been treated in the past based on documentation. - The patient is nothing by mouth (n.p.o.) currently, but will plan to start tube feeds via her OG tube tomorrow if she is not able to be extubated - monitor renal function and electrolytes and replete as needed - will check another tylenol level to rule out co-ingestion - The patient will need psychiatric evaluation once she is extubated and will need to be placed on one-to-one after extubation for her attempted suicide attempt. DEEP VEIN THROMBOSIS (DVT) PROPHYLAXIS: Lovenox. GASTROINTESTINAL (GI) PROPHYLAXIS: Pantoprazole. CODE STATUS: Full code. Total critical care time spent not including procedures approximately 1 hour and 45 minutes MTDD
[2019-10-28] MEDS: CHLORHEXIDINE GLUCONATE 0.12 % 15ML UDC (PERIDEX ORAL RINSE) MT SCH ×2 (09:53→20:57)
[2019-10-28] MEDS: PANTOPRAZOLE 40MG INJ (PROTONIX) (C9113) IV SCH (09:53)
[2019-10-28] MEDS: ENOXAPARIN 40 MG/0.4 ML SYRINGE (J1650) SC SCH (09:53)
[2019-10-28] MEDS ORDERED: POTASSIUM CHLORIDE 10% LIQ 20 MEQ/15 ML UDC NG ONE (14:00)
[2019-10-28] MEDS ORDERED: POTASSIUM PHOSPHATE INJ 15 MMOL in D5W 250 ML IV ONE (15:00)
--- NOTE | 2019-10-28 15:02 | ECGEPIP ---
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
--- NOTE | 2019-10-28 15:21 | ECGEPIP ---
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
[2019-10-28] MEDS: PROPOFOL 1,000 MG in IV 1 EA IV SCH (20:58)
[2019-10-29] VITALS (15 sets, daily range): BP systolic 109–128; BP diastolic 68–85; O2SAT 97
[2019-10-29] MEDS: PROPOFOL 1,000 MG in IV 1 EA IV SCH (04:53)
[2019-10-29 05:10] LABS: HEMATOCRIT 39.4 % (36.0-47.0); HEMOGLOBIN 13.2 g/dl (12.0-15.5); MEAN CORPUSCULAR HEMOGLOBIN 30.6 pg (27.0-33.0); MEAN CORPUSCULAR HGB CONC 33.5 g/dl (32.0-36.5); MEAN CORPUSCULAR VOLUME 91.4 fl (80.0-96.0); PLATELET COUNT, AUTOMATED 207 10^3/uL (150-450); RED BLOOD COUNT 4.31 10^6/uL (4.00-5.40); WHITE BLOOD COUNT 8.4 10^3/uL (4.0-10.0)
[2019-10-29 05:36] LABS: ABG BASE EXCESS -0.2 (-2.0-2.0); ABG HCO3 23.6 MEQ/L (22.0-26.0); ABG O2 SATURATION 97.7 % (95.0-99.0); ABG PARTIAL PRESSURE CO2 35.9 mmHg (35.0-45.0); ABG STANDARD HCO3 24.3 MEQ/L (22.0-26.0); ABG TOTAL CO2 24.7 MEQ/L (22.0-29.0); ABG pH (ARTERIAL) 7.435 UNITS (7.350-7.450)
[2019-10-29 05:41] LABS: BLOOD UREA NITROGEN 4 MG/DL (7-18); CALCIUM LEVEL 8.3 MG/DL (8.5-10.1); CARBON DIOXIDE LEVEL 22 MEQ/L (21-32); CHLORIDE LEVEL 112 MEQ/L (98-107); CREATININE FOR GFR 0.79 MG/DL (0.55-1.30); GLOMERULAR FILTRATION RATE > 60.0 (>60); GLUCOSE, FASTING 96 MG/DL (70-100); MAGNESIUM LEVEL 2.1 MG/DL (1.8-2.4); PHOSPHORUS LEVEL 2.6 MG/DL (2.5-4.9); POTASSIUM SERUM 3.1 MEQ/L (3.5-5.1); SODIUM LEVEL 143 MEQ/L (136-145)
--- NOTE | 2019-10-29 08:21 | REP ---
Portable chest x-ray: Single view. History: Intubated patient. Comparison study: October 28, 2019. Findings: Endotracheal tube is seen in good position at the level of proximal clavicles. An NG tube enters left upper quadrant. There is mild curvature in the thoracic spine. There are clips in right upper quadrant of the abdomen. Oxygen delivery tubing is seen. EKG monitoring electrodes are noted. The pleural angles are sharp. Heart is not enlarged. There is some plate-like atelectasis in the left lower lobe behind the heart. Lung fernández are otherwise clear. Impression: Plate-like atelectasis left lower lobe. Endotracheal and nasogastric tubes in position. Electronically Signed by Jc Khanna MD 10/29/2019 08:13 A
[2019-10-29] MEDS ORDERED: POTASSIUM CHLORIDE 10% LIQ 20 MEQ/15 ML UDC PO ONE (08:30)
[2019-10-29] MEDS: CHLORHEXIDINE GLUCONATE 0.12 % 15ML UDC (PERIDEX ORAL RINSE) MT SCH (08:47)
[2019-10-29] MEDS: ENOXAPARIN 40 MG/0.4 ML SYRINGE (J1650) SC SCH (08:48)
[2019-10-29] MEDS: PANTOPRAZOLE 40MG INJ (PROTONIX) (C9113) IV SCH (08:48)
[2019-10-29] MEDS: KCL 10MEQ/100ML SWI (KRUN) 10 MEQ in IV 1 EA IV SCH ×3 (08:49→11:42)
--- NOTE | 2019-10-29 13:38 | CCN ---
DATE OF SERVICE: 10/29/2019 The patient was seen and examined this morning during bedside rounds. The patient had no events overnight. She did not have any fevers noted. This morning, the patient has been weaned down on propofol, and she is responsive and following commands appropriately. She denies any pain. PHYSICAL EXAMINATION: Temperature 97.9, pulse 58, blood pressure 112/69, respiration 16, oxygen (O2) saturation 97% on ventilator at 21% FIO2. Input 1.1 liters, out 1.3 liters. General: The patient is intubated and sedated on propofol, but she is responsive and following commands appropriately. HEENT: Normocephalic, atraumatic. Pupils reactive to light bilaterally. Mucous membranes are moist. There is some crusting on of her eyelashes. Neck is supple. Trachea is midline. There is no palpable adenopathy. Cardiovascular: Regular rate and rhythm. Normal S1, S2. Unable to appreciate murmurs. Pulmonary: Clear breath sounds auscultated bilaterally with no wheezing, rales, or rhonchi. Abdomen is soft, nontender, nondistended. No palpable mass. Extremities: No edema in bilateral lower extremities. There are intentional lacerations on her forearm on the left side ,as well as in her lower extremities bilaterally. LABORATORIES: WBC 8.4, hemoglobin 13.2, platelets are 207. Chemistry: Sodium is 143, potassium 3.1, chloride is 112, bicarbonate is 22, BUN is 4, creatinine 0.79, glucose is 96, magnesium 2.1, phosphatase 2.6, AST 48, ALT 71, CPK 182. Arterial blood gas (ABG): pH 7.435, pCO2 of 35.9, pO2 of 94.0. IMAGING: Chest x-ray shows endotracheal (ET) tube and orogastric (OG) tube in good position. There are some surgical clips in the right upper quadrant. There is some mild platelike atelectasis in the left lower lobe. ASSESSMENT AND PLAN: Ms. Concepcion is a 34-year-old female with an extensive psychiatric history with a previous history of suicide attempt in the past, a history of previous intravenous (IV) drug use, and hepatitis C, who presented with an intentional overdose of her psychiatric medications in an attempted suicide attempt. The patient was intubated in the emergency department (ED) for airway protection and transferred to the medical intensive care unit (ICU) for further management. She did receive a dose of activated charcoal as per the recommendation of poison control in the ED. - The patient was on mechanical ventilation this morning with pressure-regulated volume control (PRVC) with settings of 400/16/30/5. The patient was placed on a weaning trial with pressure support which she tolerated well and was, therefore, extubated later in the morning to oxygen supplementation. - Will discontinue ABGs and chest x-rays as she is now extubated. - The patient has not any significant arrhythmias on telemetry noted. - Will discontinue propofol. - The patient will be placed on one-to-one given her suicide attempt, and she will need evaluation with psychiatry. - The patient's liver function tests (LFTs) and creatine phosphokinase (CPK) have trended down. She does have a previous history of hepatitis C but does not appear to have any chronic liver dysfunction currently. - The patient is nothing by mouth but will plan to advance her diet today as tolerated. - The patient has hypokalemia and hypophosphatemia. Will continue to replete her electrolytes and monitor as needed. - will remove mitchell catheter today deep venous thrombosis (DVT) prophylaxis. Lovenox. Gastrointestinal (GI) prophylaxis. Pantoprazole. CODE STATUS: FULL CODE. CRITICAL CARE TIME SPENT: Not including procedures approximately 45 minutes. The patient has been signed out to the hospitalist service. Please do not hesitate to call if any further questions or concerns. ANGELINA
--- NOTE | 2019-10-29 19:11 | ECGEPIP ---
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
[2019-10-30 06:00] VITALS: BP 129/83
[2019-10-30 06:00] LABS: HEMATOCRIT 40.4 % (36.0-47.0); HEMOGLOBIN 13.3 g/dl (12.0-15.5); MEAN CORPUSCULAR HEMOGLOBIN 30.6 pg (27.0-33.0); MEAN CORPUSCULAR HGB CONC 32.9 g/dl (32.0-36.5); MEAN CORPUSCULAR VOLUME 92.9 fl (80.0-96.0); PLATELET COUNT, AUTOMATED 225 10^3/uL (150-450); RED BLOOD COUNT 4.35 10^6/uL (4.00-5.40); WHITE BLOOD COUNT 6.6 10^3/uL (4.0-10.0)
[2019-10-30 06:28] LABS: BLOOD UREA NITROGEN 8 MG/DL (7-18); CALCIUM LEVEL 8.7 MG/DL (8.5-10.1); CARBON DIOXIDE LEVEL 25 MEQ/L (21-32); CHLORIDE LEVEL 112 MEQ/L (98-107); CREATININE FOR GFR 0.82 MG/DL (0.55-1.30); GLOMERULAR FILTRATION RATE > 60.0 (>60); GLUCOSE, FASTING 74 MG/DL (70-100); MAGNESIUM LEVEL 2.3 MG/DL (1.8-2.4); PHOSPHORUS LEVEL 2.6 MG/DL (2.5-4.9); POTASSIUM SERUM 3.4 MEQ/L (3.5-5.1); SODIUM LEVEL 144 MEQ/L (136-145)
[2019-10-30] MEDS: PANTOPRAZOLE 40MG INJ (PROTONIX) (C9113) IV SCH (09:45)
[2019-10-30] MEDS: POTASSIUM CHLORIDE 10 MEQ SR TABLET PO SCH ×2 (09:45→13:26)
[2019-10-30] MEDS: ENOXAPARIN 40 MG/0.4 ML SYRINGE (J1650) SC SCH (09:45)
--- NOTE | 2019-10-30 10:29 | ECGEPIP ---
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
[2019-10-30 14:00] VITALS: BP 135/78
--- NOTE | 2019-10-30 20:41 | CR.PDOC ---
General Date of Consultation: Oct 30, 2019 Consultation REASON FOR CONSULTATION/CHIEF COMPLAINT: Was admitted to ICU after overdosing on psychiatric medications, requiring endotracheal. HISTORY OF PRESENT ILLNESS: 34-year-old female with past medical history of bipolar depression, previous suicide attempt and hepatitis C was admitted to the ICU after overdosing on her psychiatric medications in a suicide attempt, requiring endotracheal intubation and mechanical ventilation. Patient received activate charcoal in the ED, did not have any apparent physiologic signs of drug overdose. Patient was extubated the following morning, without any respiratory complaints, tolerating diet and subsequently downgraded to MedSur. Patient has done well overnight, without any complaints today, resting comfortably, awaiting psychiatric evaluation. She denies any shortness of breath, chest pain, nausea, vomiting, abdominal pain or diarrhea. 10 point review of system is negative except for above ALLERGIES: Please see below. HOME MEDICATIONS: Please see below. PAST MEDICAL HISTORY: 1. Bipolar depression. 2. Prior suicide attempt. 3. Hepatitis C PAST SURGICAL HISTORY: 1. None FAMILY HISTORY: No family history of cancer, heart disease SOCIAL HISTORY: Minimal smoking history Smokes marijuana PHYSICAL EXAMINATION: VITAL SIGNS: Please see below. GENERAL: No distress HEENT: Normocephalic, atraumatic, moist mucous membranes NECK: Supple CARDIOVASCULAR EXAMINATION: S1, S2, no murmurs RESPIRATORY EXAMINATION: Clear to auscultation, no wheezing ABDOMINAL EXAMINATION: Soft, nontender, nondistended, positive bowel sounds EXTREMITIES: Range of motion intact SKIN: No rash NEUROLOGICAL EXAMINATION: Alert and oriented 3, no focal deficits PSYCHIATRIC EXAMINATION: Calm and cooperative LABORATORY DATA: Please see below. ASSESSMENT/PLAN: 1. Suicide attempt. Overdose on psychiatric medication, received activate charcoal in the ED, requ ired mechanical ventilation for 1 day, extubated for over 24 hours, now stable and medically clear, attempted to consult psychiatry, awaiting callback, continue sitter for now. Due to progressive: Lovenox. GI prophylaxis: Protonix Vital Signs/I&O Vital Signs Date Time Temp Pulse Resp B/P (MAP) Pulse Ox O2 Delivery O2 Flow Rate FiO2 10/30/19 14:00 97.6 77 17 135/78 (97) 96 Room Air 10/29/19 20:15 0.0 10/29/19 09:20 28 I&O- Last 24 Hours up to 6 AM 10/30/19 05:59 Intake Total 1035 ml Output Total 575 ml Balance 460 ml Laboratory Data Labs 24H Laboratory Tests 2 10/30/19 05:25: Nucleated Red Blood Cells % (auto) 0.0, Anion Gap 7L, Glomerular Filtration Rate > 60.0, Calcium Level 8.7, Phosphorus Level 2.6, Magnesium Level 2.3 CBC/BMP Laboratory Tests 10/30/19 05:25 Allergies Coded Allergies: No Known Drug Allergies (Verified Allergy, Unknown, 10/27/19) Home Medications Scheduled Aripiprazole (Aripiprazole) 10 Mg Tablet, 10 MG PO DAILY, (Reported) Azithromycin (Azithromycin) 250 Mg Tablet, 250 MG PO ASDIRECTED, (Reported) TWO TABLETS DAILY ON FIRST DAY, THEN ONE TABLET DAILY FOR 5 DAYS: PATIENT HAS NOT STARTED YET Gabapentin (Gabapentin) 300 Mg Capsule, 300 MG PO QID, (Reported) Naltrexone Microspheres (Vivitrol) 380 Mg Christina.er.rec, 380 MG IM Q30D, (Reported) Olanzapine (Olanzapine) 5 Mg Tablet, 5 MG PO QHS, (Reported) Venlafaxine HCl (Venlafaxine HCl ER) 75 Mg Cap.er.24h, 75 MG PO DAILY, (Reported) Scheduled PRN Metoclopramide HCl (Metoclopramide HCl) 10 Mg Tablet, 10 MG PO Q6H PRN for NAUSEA, (Reported) Trazodone HCl (Trazodone HCl) 50 Mg Tablet, 50 MG PO QHS PRN for SLEEP, (Reported) YAZMIN BRADFORD MD Oct 30, 2019 20:41
[2019-10-30 22:00] VITALS: BP 132/79
[2019-10-31 05:56] LABS: HEMATOCRIT 43.2 % (36.0-47.0); HEMOGLOBIN 14.4 g/dl (12.0-15.5); MEAN CORPUSCULAR HEMOGLOBIN 30.4 pg (27.0-33.0); MEAN CORPUSCULAR HGB CONC 33.3 g/dl (32.0-36.5); MEAN CORPUSCULAR VOLUME 91.3 fl (80.0-96.0); PLATELET COUNT, AUTOMATED 234 10^3/uL (150-450); RED BLOOD COUNT 4.73 10^6/uL (4.00-5.40); WHITE BLOOD COUNT 7.3 10^3/uL (4.0-10.0)
[2019-10-31 06:00] VITALS: BP 108/66
[2019-10-31 06:23] LABS: BLOOD UREA NITROGEN 15 MG/DL (7-18); CARBON DIOXIDE LEVEL 25 MEQ/L (21-32); CHLORIDE LEVEL 108 MEQ/L (98-107); GLOMERULAR FILTRATION RATE > 60.0 (>60); GLUCOSE, FASTING 73 MG/DL (70-100); MAGNESIUM LEVEL 2.1 MG/DL (1.8-2.4); PHOSPHORUS LEVEL 2.7 MG/DL (2.5-4.9); POTASSIUM SERUM 3.8 MEQ/L (3.5-5.1); SODIUM LEVEL 139 MEQ/L (136-145)
[2019-10-31] MEDS: PANTOPRAZOLE 40MG INJ (PROTONIX) (C9113) IV SCH (11:24)
[2019-10-31] MEDS: ENOXAPARIN 40 MG/0.4 ML SYRINGE (J1650) SC SCH (11:24)
[2019-10-31 14:00] VITALS: BP 122/83
[2019-10-31] MEDS ORDERED: POTASSIUM CHLORIDE 10 MEQ SR TABLET PO ONE (16:00)
--- NOTE | 2019-10-31 19:46 | IPNPDOC ---
Date Seen The patient was seen on 10/31/19. Progress Note HISTORY OF PRESENT ILLNESS: 34-year-old female with past medical history of bipolar depression, previous suicide attempt and hepatitis C was admitted to the ICU after overdosing on her psychiatric medications in a suicide attempt, requiring endotracheal intubation and mechanical ventilation. Patient received activate charcoal in the ED, did not have any apparent physiologic signs of drug overdose. Patient was extubated the following morning, without any respiratory complaints, tolerating diet and subsequently downgraded to MedSur. Patient has done well overnight, without any complaints today, resting comfortably, awaiting psychiatric evaluation. She denies any shortness of breath, chest pain, nausea, vomiting, abdominal pain or diarrhea. 11/01/19 No acute events, without complaints, awaiting psychiatric evaluation. 10 point review of system is negative except for above ALLERGIES: Please see below. PHYSICAL EXAMINATION: VITAL SIGNS: Please see below. GENERAL: No distress HEENT: Normocephalic, atraumatic, moist mucous membranes NECK: Supple CARDIOVASCULAR EXAMINATION: S1, S2, no murmurs RESPIRATORY EXAMINATION: Clear to auscultation, no wheezing ABDOMINAL EXAMINATION: Soft, nontender, nondistended, positive bowel sounds EXTREMITIES: Range of motion intact SKIN: No rash NEUROLOGICAL EXAMINATION: Alert and oriented 3, no focal deficits PSYCHIATRIC EXAMINATION: Calm and cooperative LABORATORY DATA: Please see below. ASSESSMENT/PLAN: 1. Suicide attempt. Overdose on psychiatric medication, received activate charcoal in the ED, required mechanical ventilation for 1 day, now stable and medically clear, Psychiatry consulted (Dr. Castro), awaiting recs, continue sitter for now. Due to progressive: SCDs/TEDs GI prophylaxis: Not needed VS, I&O, 24H, Frank Vital Signs/I&O Vital Signs Date Time Temp Pulse Resp B/P (MAP) Pulse Ox O2 Delivery O2 Flow Rate FiO2 10/31/19 14:00 97.9 98 16 122/83 (96) 96 Room Air 10/30/19 21:00 0.0 10/29/19 09:20 28 I&O- Last 24 Hours up to 6 AM 10/31/19 06:00 Intake Total 500 ml Output Total 0 ml Balance 500 ml Laboratory Data 24H LABS Laboratory Tests 2 10/31/19 05:43: Nucleated Red Blood Cells % (auto) 0.0, Anion Gap 6L, Glomerular Filtration Rate > 60.0, Calcium Level 9.0, Phosphorus Level 2.7, Magnesium Level 2.1 CBC/BMP Laboratory Tests 10/31/19 05:43 YAZMIN BRADFORD MD Oct 31, 2019 19:46
[2019-10-31 22:00] VITALS: BP 122/85
[2019-11-01 06:00] VITALS: BP 123/81
[2019-11-01 06:17] LABS: HEMATOCRIT 45.7 % (36.0-47.0); HEMOGLOBIN 15.1 g/dl (12.0-15.5); MEAN CORPUSCULAR VOLUME 90.7 fl (80.0-96.0); PLATELET COUNT, AUTOMATED 265 10^3/uL (150-450); RED BLOOD COUNT 5.04 10^6/uL (4.00-5.40); WHITE BLOOD COUNT 7.8 10^3/uL (4.0-10.0)
[2019-11-01 06:39] LABS: BLOOD UREA NITROGEN 19 MG/DL (7-18); CALCIUM LEVEL 9.4 MG/DL (8.5-10.1); CARBON DIOXIDE LEVEL 23 MEQ/L (21-32); CHLORIDE LEVEL 104 MEQ/L (98-107); CREATININE FOR GFR 0.85 MG/DL (0.55-1.30); GLOMERULAR FILTRATION RATE > 60.0 (>60); GLUCOSE, FASTING 82 MG/DL (70-100); MAGNESIUM LEVEL 2.3 MG/DL (1.8-2.4); PHOSPHORUS LEVEL 3.1 MG/DL (2.5-4.9); POTASSIUM SERUM 3.6 MEQ/L (3.5-5.1); SODIUM LEVEL 137 MEQ/L (136-145)
[2019-11-01] MEDS ORDERED: POTASSIUM CHLORIDE 10 MEQ SR TABLET PO ONE (08:15)
--- NOTE | 2019-11-01 11:58 | MHCRPDOC ---
[facility] Consultation Consultation DATE OF CONSULTATION: 11/01/19 CONSULTATION REQUESTED BY: Dr. Ortez REASON FOR CONSULTATION: s/p OD RELEVANT HISTORY: Per medical admission note: "Ms. Concepcion is a 34-year-old female with a past medical history of bipolar disorder, borderline personality disorder, depression, anxiety, and history of opioid abuse in the past who presented after an intentional drug overdose and intended suicide attempt. History is obtained from the patient's chart and from other collateral information as the patient was intubated on examination and unable to provide any history. As per ED physician, the patient reportedly was on the phone with a family member where she disclosed she was planning an intentional drug overdose for suicide attempt. EMS was called then and the patient was found in her car and at the time was still awake and able to converse. She told EMS she took an unknown quantity of Zyprexa, trazodone and aripiprazole at approximately 06:15 p.m. She denied any alcohol use or other substance use at that time. Upon arrival to the ED, the patient was still responsive initially; however, she was noted to be less and less responsive in the emergency room. She was no longer arousable and did not have a gag reflex and so was intubated by the ED physician. After intubation, the patient had an orogastric (OG) tube placed and she was administered activated charcoal as recommended by Poison Control. She was then admitted to the intensive care unit (ICU) for further management." Pt seen with her family present that she wanted to remain in the room. States she impulsive took an OD of zyprexa, abilify, and trazodone due to having depressive thoughts of not be a good mother, a good person even though things in her life have been going very well such as getting clean off opiates, getting her own place, getting her son back, and plans to attend [employer] for bachelor's in psychology starting tomorrow. She is future oriented toward attending school tomorrow. States she regrets her OD and denies thoughts of SI, OD currently. States she see Dr. Villalobos and Eric Quijano at [facility] and finds treatment there, therapy beneficial. Reviewed with pt CBT and how it works to aid depressive thoughts which she found beneficial and will ask to do in therapy next time she sees Eric Quijano. She appears euthymic and full. She denies depression, anxiety, insomnia, SI/HI, hallucinations, delusions. Family feels safe taking pt home and pt plans to go home with family and stay with them for an extended period of time after hospitalization. Family states they will make sure she's doing ok and safe. pt states she was started on Abilify Aristada mid September but Dr. Villalobos and doesn't not know if it's beneficial of not. Advised pt of 1month injection Abilify maintena and states she'll ask Dr. Villalobos about receiving that over 2month aristada the next time im med due as she may tolerate and feels 1month more beneficial. States she was taking effexor xr 75mg daily that she found beneficial for her mood and would like to continue it. PAST PSYCHIATRIC HISTORY: 1. Bipolar disorder. 2. Borderline personality disorder. 3. Depression. 4. Anxiety. 5. Previous suicide attempt. 6. Previous IV opioid abuse. Two intentional OD in 2010 one treated medically at [facility] and other treated on [facility] PAST MEDICAL HISTORY: Cholecystectomy. History of seizure in the past. History of hepatitis C. FAMILY HISTORY: noncontributory PERSONAL AND SOCIAL HISTORY: The patient was born and raised in [place]. 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 MENTAL STATUS EXAMINATION: Patient is a 34-year old female, who is clean, of stated age, euthymic, and pl easant Speech is reg rate rhythm volume Language skills are good Thought processes including: logical, linear, future oriented Thought content: Denies SI/HI, AVH Abstract reasoning, and computation: intact. Description of associations: appropriate Description of abnormal or psychotic thoughts: denies Judgment: good Insight: goodx3 Recent and remote memory: good Attention span and concentration: good Language: appropriate Fund of knowledge: average Mood: "good" Affect: euthymic, full, congruent DIAGNOSIS: 1. Major Depressive D/O-moderate, recurrent w/o psychosis 2. Cannabis Use d/o 3. Opiate use d/o in short term remission 4. borderline personality d/o PLAN: 1. D/c 1:1 sitter, pt denies SI/HI, AVH 2. restart effexor xr 75mg daily 3. D/c home with family who pt will stay with after d/c and family will watch patient for safety (family feels pt safe to d/c home with them) 4. F/U with Dr. Mendez and Eric Quijano at [facility] Vital Signs Vital Signs Date Time Temp Pulse Resp B/P (MAP) Pulse Ox O2 Delivery O2 Flow Rate FiO2 11/01/19 06:00 98.8 91 16 123/81 (95) 94 Room Air 10/30/19 21:00 0.0 10/29/19 09:20 28 Laboratory Data 24H Labs Laboratory Tests 2 11/01/19 05:46: Nucleated Red Blood Cells % (auto) 0.0, Anion Gap 10, Glomerular Filtration Rate > 60.0, Calcium Level 9.4, Phosphorus Level 3.1, Magnesium Level 2.3 Home Medications Current Medications Current Medications Medications (Trade) Dose Ordered Sig/Flavia Route PRN Reason Start Time Stop Time Status Last Admin Dose Admin Chlorhexidine Gluconate (Peridex Oral Rinse) SWAB/BRUSH ORAL CAVITY BID MT 10/28/19 09:00 10/29/19 14:13 DC 10/29/19 08:47 Dextrose/Sodium Chloride 1,000 ml @ 75 mls/hr [id number] IV 10/28/19 05:03 10/29/19 08:21 DC 10/28/19 19:40 Enoxaparin Sodium (Lovenox) 40 mg DAILY SC 10/28/19 09:00 10/31/19 15:28 DC 10/31/19 11:24 Home Med (Med Rec Complete!) ASDIRECTED XX 10/28/19 05:00 10/28/19 04:53 DC Midazolam HCl (Versed) 2 mg Q15MP PRN IV AGITATION 10/28/19 05:15 10/29/19 09:26 DC Pantoprazole Sodium (Protonix) 40 mg DAILY IV 10/28/19 09:00 10/31/19 15:28 DC 10/31/19 11:24 Potassium Chloride 10 meq/ IV Miscellaneous Supplies 100 ml @ 100 mls/hr Q1H IV 10/29/19 08:30 10/29/19 11:29 DC 10/29/19 11:42 Potassium Chloride (Micro-K Extencaps) 40 meq Q4H PO 10/30/19 09:00 10/30/19 13:01 DC 10/30/19 13:26 Propofol 1000 mg/ IV Miscellaneous Supplies 100 ml @ 4.909 mls/ hr [id number] IV 10/28/19 05:03 10/28/19 11:27 DC Propofol 1000 mg/ IV Miscellaneous Supplies 100 ml @ 12.273 mls/ hr Q8H9M IV 10/28/19 02:45 10/28/19 05:17 DC 10/28/19 02:50 Propofol 1000 mg/ IV Miscellaneous Supplies 100 ml @ 0 mls/hr Q0M IV 10/28/19 05:03 10/29/19 09:26 DC 10/29/19 04:53 Scheduled Aripiprazole (Aripiprazole) 10 Mg Tablet, 10 MG PO DAILY, (Reported) Azithromycin (Azithromycin) 250 Mg Tablet, 250 MG PO ASDIRECTED, (Reported) TWO TABLETS DAILY ON FIRST DAY, THEN ONE TABLET DAILY FOR 5 DAYS: PATIENT HAS NOT STARTED YET Gabapentin (Gabapentin) 300 Mg Capsule, 300 MG PO QID, (Reported) Naltrexone Microspheres (Vivitrol) 380 Mg Christina.er.rec, 380 MG IM Q30D, (Reported) Olanzapine (Olanzapine) 5 Mg Tablet, 5 MG PO QHS, (Reported) Venlafaxine HCl (Venlafaxine HCl ER) 75 Mg Cap.er.24h, 75 MG PO DAILY, (Reported) Scheduled PRN Metoclopramide HCl (Metoclopramide HCl) 10 Mg Tablet, 10 MG PO Q6H PRN for NAUSEA, (Reported) Trazodone HCl (Trazodone HCl) 50 Mg Tablet, 50 MG PO QHS PRN for SLEEP, (Reported) Allergies Coded Allergies: No Known Drug Allergies (Verified Allergy, Unknown, 10/27/19) CLARK CAGLE DO Nov 01, 2019 10:18
[2019-11-01] MEDS ORDERED: VENLAFAXINE **XR** 75MG CAPSULE PO ONE (13:00)
[2019-11-02] MEDS ORDERED: VENLAFAXINE **XR** 75MG CAPSULE PO SCH (09:00)
--- NOTE | 2019-11-02 19:23 | DS.PDOC ---
Discharge Summary General Date of Admission Oct 28, 2019 at 05:03 Date of Discharge 11/01/19 Attending Physician: YAZMIN BRADFORD MD Discharge Summary PROCEDURES PERFORMED DURING STAY: None ADMITTING DIAGNOSES: 1. Suicide attempt, Acute respiratory failure DISCHARGE DIAGNOSES: 1. Suicide attempt, Acute respiratory failure COMPLICATIONS/CHIEF COMPLAINT: Intentional Overdose Of Drug In Tablet Form. HISTORY OF PRESENT ILLNESS: 34 y.o female w/ PMH of Anxiety, depression & borderline personality disorder was admitted for suicide attempt. She overdosed on her psychiatric medications (SSRIs & Antipsychotics), was intubated in the ED for airway protection & received activated charcoal in the ED. She was extubated the following morning without any difficulty, never showed any symptoms of drug toxicity & blood work has remained acceptable (except for hypokalemia) throughout hospitalization. She has been stable on Med/Surg for ~72 hours, without any complaints, evaluated by Psychiatry today and cleared for discharge home on SSRI & outpatient follow up. Patient has not expressed any suicidal ideation since extubation. She is clinically & hemodynamically stable for discharge at this time. HOSPITAL COURSE: As above DISCHARGE MEDICATIONS: Please see below. ALLERGIES: Please see below. PHYSICAL EXAMINATION: VITAL SIGNS: Please see below. GENERAL: No distress HEENT: Normocephalic, atraumatic, moist mucous membranes NECK: Supple CARDIOVASCULAR EXAMINATION: S1, S2, no murmurs RESPIRATORY EXAMINATION: Clear to auscultation, no wheezing ABDOMINAL EXAMINATION: Soft, nontender, nondistended, positive bowel sounds EXTREMITIES: Range of motion intact SKIN: No rash NEUROLOGICAL EXAMINATION: Alert and oriented 3, no focal deficits PSYCHIATRIC EXAMINATION: Calm and cooperative LABORATORY DATA: Please see below. LABORATORY DATA: Please see below. PROGNOSIS: Fair ACTIVITY: As tolerated DIET: Regular DISCHARGE PLAN: follow up w/ Psychiatry & PCP in 1-2 weeks DISPOSITION: 01 Home, Self-Care. DISCHARGE INSTRUCTIONS: 1. as above DISCHARGE CONDITION: Stable TIME SPENT ON DISCHARGE: Greater than 26 minutes. Vital Signs/I&Os Vital Signs Date Time Temp Pulse Resp B/P (MAP) Pulse Ox O2 Delivery O2 Flow Rate FiO2 11/01/19 06:00 98.8 91 16 123/81 (95) 94 Room Air 10/30/19 21:00 0.0 10/29/19 09:20 28 I&O- Last 24 Hours up to 6 AM 11/02/19 06:00 Intake Total 120 ml Output Total 0 ml Balance 120 ml Discharge Medications Scheduled Naltrexone Microspheres (Vivitrol) 380 Mg Christina.er.rec, 380 MG IM Q30D, (Reported) Venlafaxine HCl (Venlafaxine HCl ER) 75 Mg Cap.er.24h, 75 MG PO DAILY, (Reported) Scheduled PRN Trazodone HCl (Trazodone HCl) 50 Mg Tablet, 50 MG PO QHS PRN for SLEEP, (Reported) Allergies Coded Allergies: No Known Drug Allergies (Verified Allergy, Unknown, 10/27/19) YAZMIN BRADFORD MD Nov 02, 2019 19:23
== END 2019-11-01 13:25 | disposition home or self-care (01) | DRG 812 ==
LOC: M ED 19:36 → M ED INP 10-28 05:03 → ENRESERV 10-28 05:13 → M ICU 10-28 05:48 → M MSPAV 10-29 15:00
PROVIDERS: ADMIT Internal Medicine Pulmonary Disease; ATTEND Internal Medicine
PROC: 0BH17EZ Insertion of Endotracheal Airway into Trachea, Via Natural or Artificial Opening (ICD-10-PCS; principal; 2019-10-28)
PROC: 5A1945Z Respiratory Ventilation, 24-96 Consecutive Hours (ICD-10-PCS; 2019-10-28)
DX: T43.592A Poisoning by other antipsychotics and neuroleptics, intentional self-harm, initial encounter (principal); F33.1 Major depressive disorder, recurrent, moderate; E83.39 Other disorders of phosphorus metabolism; T43.212A Poisoning by selective serotonin and norepinephrine reuptake inhibitors, intentional self-harm, initial encounter; F60.3 Borderline personality disorder; F41.9 Anxiety disorder, unspecified; F12.10 Cannabis abuse, uncomplicated; F11.11 Opioid abuse, in remission; R94.31 Abnormal electrocardiogram [ECG] [EKG]; R74.0 Nonspecific elevation of levels of transaminase and lactic acid dehydrogenase [LDH]; E87.6 Hypokalemia; Z79.899 Other long term (current) drug therapy

== ENCOUNTER → 2019-10-27 | Outpatient (REF) | payer OTHER ==
[~2019-10-27] MED LIST changes: +ARIP1TAB PO; +AZIT-12 PO; +OLAN5TAB PO; +TRAZ-186 PO; +VENL75CA47 PO
[2019-10-27 20:04] LABS: CHLAMYDIA DNA AMPLIFICATION NEGATIVE (NEGATIVE); GC DNA AMPLIFICATION NEGATIVE (NEGATIVE)
== END ==
LOC: M LAB REF 17:14
PROVIDERS: ATTEND Physician Assistant
DX: Z20.2 Contact with and (suspected) exposure to infections with a predominantly sexual mode of transmission (principal)

== ENCOUNTER 2019-11-16 12:16 | Emergency (ER) | payer MEDICAID, OTHER ==
[~2019-11-16] VITALS: Ht 167.6 cm; Wt 80.5 kg
[~2019-11-16 12:16] MED LIST changes: +ARIP1TAB PO; +AZIT-12 PO; +OLAN5TAB PO; +TRAZ-186 PO; +VENL75CA47 PO
[2019-11-16] MEDS ORDERED: ABIL1INJ IM (12:32)
--- NOTE | 2019-11-16 12:56 | REP ---
CT study of the cervical spine without contrast: History: Trauma. Comparison CT cervical spine study July 31, 2019. Technique: Helical scanning is acquired and overlapping 2 mm high resolution axial images were generated and reviewed at bone and soft tissue window settings. Coronal and sagittal multiplanar re-formations images are generated. CT findings: There is no evidence of cervical spine element fracture. No skull base fracture is seen. Cervical vertebral body heights are preserved. Alignment is normal. Facet joints are normally aligned bilaterally at each cervical level on multiplanar re-formations images. There is no evidence of intraspinal or paraspinal hematoma. No extra vertebral abnormality is seen. Impression: Negative CT study of the cervical spine without contrast. No fracture seen. Electronically Signed by Jc Khanna MD 11/16/2019 12:48 P
--- NOTE | 2019-11-16 14:15 | REP ---
CT of the brain without IV contrast: Comparison is 07/31/2019. There is no subdural or epidural hematoma. There is no intraparenchymal or subarachnoid hemorrhage. There is no edema, mass effect or midline shift. The cortical stripe is unremarkable. Ventricles are normal size. The visualized paranasal sinuses and mastoid air cells are clear. Impression: Negative CT study of the brain. No change from the prior study. Electronically Signed by Brian Meyers MD 11/16/2019 02:07 P
[2019-11-16 14:32] LABS: HEMATOCRIT 49.5 % (36.0-47.0); HEMOGLOBIN 16.2 g/dl (12.0-15.5); MEAN CORPUSCULAR HEMOGLOBIN 30.3 pg (27.0-33.0); MEAN CORPUSCULAR HGB CONC 32.7 g/dl (32.0-36.5); MEAN CORPUSCULAR VOLUME 92.7 fl (80.0-96.0); PLATELET COUNT, AUTOMATED 217 10^3/uL (150-450); RED BLOOD COUNT 5.34 10^6/uL (4.00-5.40); WHITE BLOOD COUNT 9.5 10^3/uL (4.0-10.0)
[2019-11-16 14:55] LABS: HCG, SERUM QUALITATIVE NEGATIVE (NEGATIVE)
[2019-11-16 14:56] LABS: ALBUMIN 4.1 GM/DL (3.2-5.2); ALT/SGPT 100 U/L (12-78); BILIRUBIN,DIRECT 0.3 MG/DL (0.0-0.2); BLOOD UREA NITROGEN 9 MG/DL (7-18); CALCIUM LEVEL 9.7 MG/DL (8.5-10.1); CARBON DIOXIDE LEVEL 25 MEQ/L (21-32); CHLORIDE LEVEL 107 MEQ/L (98-107); CREATININE FOR GFR 0.99 MG/DL (0.55-1.30); ETHYL ALCOHOL (ETHANOL) < 0.003 % (0.000-0.010); GLOMERULAR FILTRATION RATE > 60.0 (>60); GLUCOSE, FASTING 67 MG/DL (70-100); POTASSIUM SERUM 3.6 MEQ/L (3.5-5.1); SODIUM LEVEL 140 MEQ/L (136-145); TOTAL PROTEIN 8.3 GM/DL (6.4-8.2)
[2019-11-16 15:29] VITALS: BP 111/61
== END 2019-11-16 15:30 | disposition home or self-care (01) ==
LOC: M ED 12:16 → EDBD 12:16 → M ED 15:30
DX: S06.0X0A Concussion without loss of consciousness, initial encounter (principal); S10.81XA Abrasion of other specified part of neck, initial encounter; S00.03XA Contusion of scalp, initial encounter; Y04.8XXA Assault by other bodily force, initial encounter; Y07.03 Male partner, perpetrator of maltreatment and neglect; Y92.89 Other specified places as the place of occurrence of the external cause; Y99.0 Civilian activity done for income or pay; B19.20 Unspecified viral hepatitis C without hepatic coma; R56.9 Unspecified convulsions; F15.10 Other stimulant abuse, uncomplicated; Z79.899 Other long term (current) drug therapy
CPT/HCPCS: 36415; 70450; 72125; 80048; 80076; 84703; 85027; 99284; G0480

== ENCOUNTER 2019-12-02 04:57 | Emergency (ER) | payer MEDICAID, OTHER ==
[~2019-12-02] VITALS: Ht 167.6 cm; Wt 81.8 kg
[~2019-12-02 04:57] MED LIST changes: +ABIL1INJ IM
[2019-12-02 05:49] LABS: BASO % 0.4 % (0.0-1.0); EOS # 0.1 10^3/uL (0.0-0.5); EOS % 0.6 % (0.0-3.0); HEMATOCRIT 43.8 % (36.0-47.0); HEMOGLOBIN 14.6 g/dl (12.0-15.5); LYMPH # 2.7 10^3/uL (1.5-5.0); LYMPH % 28.8 % (24.0-44.0); MEAN CORPUSCULAR HEMOGLOBIN 30.1 pg (27.0-33.0); MEAN CORPUSCULAR HGB CONC 33.3 g/dl (32.0-36.5); MEAN CORPUSCULAR VOLUME 90.3 fl (80.0-96.0); MONO # 0.7 10^3/uL (0.0-0.8); MONO % 7.1 % (0.0-5.0); NEUTROPHILS # 5.9 10^3/uL (1.5-8.5); NEUTROPHILS % 62.8 % (36.0-66.0); PLATELET COUNT, AUTOMATED 262 10^3/uL (150-450); RED BLOOD COUNT 4.85 10^6/uL (4.00-5.40); WHITE BLOOD COUNT 9.3 10^3/uL (4.0-10.0)
--- NOTE | 2019-12-02 06:01 | ECGEPIP ---
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
[2019-12-02 06:21] LABS: HCG, SERUM QUALITATIVE NEGATIVE (NEGATIVE)
[2019-12-02 06:23] LABS: BLOOD UREA NITROGEN 13 MG/DL (7-18); CARBON DIOXIDE LEVEL 26 MEQ/L (21-32); CHLORIDE LEVEL 107 MEQ/L (98-107); CREATININE FOR GFR 0.72 MG/DL (0.55-1.30); ETHYL ALCOHOL (ETHANOL) < 0.003 % (0.000-0.010); GLOMERULAR FILTRATION RATE > 60.0 (>60); GLUCOSE, FASTING 99 MG/DL (70-100); POTASSIUM SERUM 3.5 MEQ/L (3.5-5.1); SODIUM LEVEL 140 MEQ/L (136-145)
[2019-12-02 06:24] LABS: AMPHETAMINES LEVEL URINE NEGATIVE (NEGATIVE); BARBITURATES URINE NEGATIVE (NEGATIVE); BENZODIAZEPINES URINE NEGATIVE (NEGATIVE); CANNABINOIDS URINE POSITIVE (NEGATIVE); COCAINE METABOLITE URINE NEGATIVE (NEGATIVE); METHADONE URINE NEGATIVE (NEGATIVE); OPIATES URINE NEGATIVE (NEGATIVE); PHENCYCLIDINE URINE NEGATIVE (NEGATIVE)
[2019-12-02 07:12] LABS: INFLUENZA A AMPLIFICATION NEGATIVE (NEGATIVE); INFLUENZA B AMPLIFICATION NEGATIVE (NEGATIVE)
[2019-12-02 07:32] VITALS: BP 117/82
== END 2019-12-02 07:37 | disposition home or self-care (01) ==
LOC: M ED 04:57
DX: R55 Syncope and collapse (principal); Z79.899 Other long term (current) drug therapy
CPT/HCPCS: 36415; 80048; 80307; 83605; 84443; 84703; 85025; 87502; 93005; 93041; 94760; 99285; G0480

== ENCOUNTER → 2020-07-18 | Outpatient (CLI) | payer OTHER, MEDICAID | LOC: M WUC 13:28 | PROVIDERS: ATTEND Nurse Practitioner Family | DX: Z33.1 Pregnant state, incidental (principal); N39.0 Urinary tract infection, site not specified ==

== ENCOUNTER → 2020-07-23 | Outpatient (CLI) | payer OTHER ==
--- NOTE | 2020-07-31 11:41 | REP ---
FIRST TRIMESTER ULTRASOUND TECHNIQUE: Real-time sonographic evaluation of the gravid uterus is performed utilizing transabdominal technique. FINDINGS: There is a single living intrauterine gestation. The estimated gestational age is 7 weeks 4 days based on a crown-rump length of 13 mm, estimated date of confinement (EDC) 03/07/2021. heart rate is 143 beats per minute. There is no subchorionic hemorrhage. No maternal adnexal region abnormality is seen. MTDD
== END ==
LOC: M RAD 15:45
PROVIDERS: ATTEND Nurse Practitioner Adult Health
DX: Z34.81 Encounter for supervision of other normal pregnancy, first trimester (principal); Z3A.01 Less than 8 weeks gestation of pregnancy

== ENCOUNTER → 2020-09-12 | Outpatient (CLI) | payer OTHER | LOC: M WHC 14:29 | PROVIDERS: ATTEND Obstetrics & Gynecology | DX: Z36.89 Encounter for other specified antenatal screening (principal); Z3A.14 14 weeks gestation of pregnancy; Z53.9 Procedure and treatment not carried out, unspecified reason ==

== ENCOUNTER → 2020-10-03 | Outpatient (CLI) | payer OTHER ==
--- NOTE | 2020-10-03 17:34 | REP ---
INDICATION: ANANTOMY. COMPARISON: None. TECHNIQUE: Multiple real-time and color Doppler images by ultrasound. FINDINGS: There is a single intrauterine gestation in the cephalic presentation. The placenta is posterior, grade 1 without previa. The placental cord insertion is located centrally in the placenta. The cord insertion is unremarkable. There is a three-vessel cord. The cervix measures 3.4 cm in length. Gestational age by the ultrasound today is 17 weeks 5 days he days with an AJITH of 03/08/2021. By LMP gestational age is 21 weeks 0 days with an AJITH of 02/13/2021. By the 1st ultrasound gestational age is 17 weeks 6 days with AJITH of 03/07/2021. Estimated weight is 205 gm, 0 lb, 7 oz. This is the 35th percentile for 17 weeks 6 days gestational age. The following anatomic structures are identified and are unremarkable: Cranium, cavum septum pellucidum, falx, intracranial lateral ventricles, choroid plexus, cerebellum, cisterna magna, facial profile, upper lip, cardiac rate left ventricular outflow tracts, diaphragm, stomach, abdominal wall, right and left kidneys, bladder, right and left upper extremities, right and left lower extremities, 3 vessel cord. There is an echogenic focus in the cardiac left ventricle. This is usually artifact from the chorda tendineae. The four-chamber view of the heart is otherwise unremarkable. The spine is suboptimally demonstrated. A follow-up study dedicated to the spine might be considered. IMPRESSION: Anatomic and findings as discussed above. <Electronically signed by Brian Meyers > 10/03/20 [id number]
== END ==
LOC: M WHC 10:20
PROVIDERS: ATTEND Obstetrics & Gynecology
DX: Z34.82 Encounter for supervision of other normal pregnancy, second trimester (principal)

== ENCOUNTER → 2020-11-15 | Outpatient (CLI) | payer OTHER ==
[~2020-11-15] MED LIST changes: +GABA-282 PO; -GABA-843 PO
[2020-11-15 11:53] LABS: HEMATOCRIT 34.8 % (36.0-47.0); HEMOGLOBIN 11.6 g/dl (12.0-15.5); MEAN CORPUSCULAR HEMOGLOBIN 29.2 pg (27.0-33.0); MEAN CORPUSCULAR HGB CONC 33.3 g/dl (32.0-36.5); MEAN CORPUSCULAR VOLUME 87.7 fl (80.0-96.0); PLATELET COUNT, AUTOMATED 239 10^3/uL (150-450); RED BLOOD COUNT 3.97 10^6/uL (4.00-5.40)
[2020-11-15 13:40] LABS: HEPATITIS C VIRUS ABY INDEX > 11.0 INDEX (<0.8); HIV 1&2 SCREEN CENTAUR NEGATIVE (NEGATIVE)
[2020-11-15 17:24] LABS: CHLAMYDIA DNA AMPLIFICATION NEGATIVE (NEGATIVE); GC DNA AMPLIFICATION NEGATIVE (NEGATIVE)
== END ==
LOC: M LAB 10:45
PROVIDERS: ATTEND Obstetrics & Gynecology
DX: Z34.81 Encounter for supervision of other normal pregnancy, first trimester (principal); Z3A.10 10 weeks gestation of pregnancy

== ENCOUNTER → 2020-11-15 | Outpatient (CLI) | payer OTHER ==
[2020-11-15 12:17] LABS: HEMATOCRIT 34.7 % (36.0-47.0); HEMOGLOBIN 11.5 g/dl (12.0-15.5); MEAN CORPUSCULAR HEMOGLOBIN 29.1 pg (27.0-33.0); MEAN CORPUSCULAR HGB CONC 33.1 g/dl (32.0-36.5); MEAN CORPUSCULAR VOLUME 87.8 fl (80.0-96.0); PLATELET COUNT, AUTOMATED 237 10^3/uL (150-450); RED BLOOD COUNT 3.95 10^6/uL (4.00-5.40); WHITE BLOOD COUNT 8.9 10^3/uL (4.0-10.0)
[2020-11-15 12:39] LABS: HCG, SERUM QUALITATIVE POSITIVE (NEGATIVE)
[2020-11-15 12:43] LABS: ALBUMIN 2.7 GM/DL (3.2-5.2); ALT/SGPT 61 U/L (12-78); BILIRUBIN,TOTAL 0.7 MG/DL (0.2-1.0); BLOOD UREA NITROGEN 11 MG/DL (7-18); CALCIUM LEVEL 8.9 MG/DL (8.5-10.1); CARBON DIOXIDE LEVEL 26 MEQ/L (21-32); CHLORIDE LEVEL 105 MEQ/L (98-107); CREATININE FOR GFR 0.53 MG/DL (0.55-1.30); GLOMERULAR FILTRATION RATE > 60.0 (>60); GLUCOSE, FASTING 133 MG/DL (70-100); POTASSIUM SERUM 3.5 MEQ/L (3.5-5.1); SODIUM LEVEL 138 MEQ/L (136-145); TOTAL PROTEIN 6.4 GM/DL (6.4-8.2)
[2020-11-15 12:58] LABS: HEPATITIS B SURFACE ANTIGEN NEGATIVE (NEGATIVE)
[2020-11-15 13:26] LABS: HIV 1&2 SCREEN CENTAUR NEGATIVE (NEGATIVE)
[2020-11-15 13:41] LABS: CHLAMYDIA DNA AMPLIFICATION NEGATIVE (NEGATIVE); GC DNA AMPLIFICATION NEGATIVE (NEGATIVE)
--- NOTE | 2020-11-15 13:44 | ECGEPIP ---
[facility] Test Date: 2020-11-15 Pat Name: ELI LUGO Department: Room: - Gender: Female House Player: : 1985 Requested By: Brian Mckeon Order Number: [id number] Reading MD: Ann Dewey Measurements Intervals [place] Rate: 84 P: 1 FL: 187 QRS: 21 QRSD: 101 T: 47 QT: 404 QTc: 479 Interpretive Statements SINUS RHYTHM WNL STABLE C/W 12/02/19 Electronically Signed on 11-15-2020 13:44:07 EST by Ann Dewey
[2020-11-15 13:54] LABS: HEPATITIS C VIRUS ABY INDEX > 11.0 INDEX (<0.8)
== END ==
LOC: M LAB 10:49
PROVIDERS: ATTEND Family Medicine
DX: F11.21 Opioid dependence, in remission (principal)

== ENCOUNTER → 2020-11-20 | Outpatient (CLI) | payer OTHER ==
--- NOTE | 2020-11-20 08:57 | REP ---
INDICATION: F/U ANATOMY. COMPARISON: Comparison study October 03, 2020.. TECHNIQUE: Transabdominal obstetric sonography. FINDINGS: Scanning through the gravid uterus demonstrates a viable single intrauterine gestation in cephalic lie. motion is observed and heart rate is recorded at 144 beats per minute. A posterior placenta is seen, grade 1, without evidence of placenta previa. Amniotic fluid is subjectively normal. Closed cervical length is measured at 3.8 cm transabdominally. No extrauterine abnormality is observed. Amniotic fluid is subjectively normal. No anomaly is appreciated. spine is still less than optimally seen due to position. The following additional anatomic structures are identified today and felt to be unremarkable: cranium, face and profile nose and lips, four-chamber heart with left and right ventricular outflow tract views, stomach, abdominal wall cord insertion, kidneys and urinary bladder, three-vessel cord.. Biometry chart: BPD 6.0 cm, 24 weeks 4 days Head circumference 22.3 cm, 24 weeks 2 days HC AC ratio 20.1 cm, 24 weeks 5 days Femur length 4.6 cm, 25 weeks 3 days Humeral length 4.0 cm, 24 weeks 3 days HC AC ratio normal 1.11 Cephalic index normal 0.75 Estimated weight 753 g, 1 lb 10 oz, 51st percentile for 24 weeks 5 days IMPRESSION: Viable single intrauterine gestation at 24 weeks 5 days by today's composite sonographic criteria. AJITH by today's sonography March 07, 2021. No complication identified. Expected gestational age estimate based on prior sonography is 24 weeks 5 days as well AJITH March 07, 2021. spine still less than optimally visualized. <Electronically signed by Gomez Khanna > 11/20/20 0818
== END ==
LOC: M WHC 07:45
PROVIDERS: ATTEND Advanced Practice Midwife
DX: Z34.92 Encounter for supervision of normal pregnancy, unspecified, second trimester (principal); Z3A.24 24 weeks gestation of pregnancy

== ENCOUNTER → 2020-12-17 | Outpatient (CLI) | payer OTHER ==
--- NOTE | 2020-12-20 23:57 | ECGEPIP ---
[facility] Test Date: 2020-12-17 Pat Name: ELI LUGO Department: Room: - Gender: Female Cardiology Associate: radha : 1985 Requested By: Brian Mckeon Order Number: [id number] Reading MD: Elroy Barahona Measurements Intervals [place] Rate: 97 P: 31 LA: 164 QRS: 17 QRSD: 92 T: 31 QT: 394 QTc: 500 Interpretive Statements Normal sinus rhythm Compared to prior tracings(3) in the system, no remarkable changes Electronically Signed on 12-20-2020 23:57:22 EST by Elroy Barahona
== END ==
LOC: M EKG 09:03
PROVIDERS: ATTEND Family Medicine
DX: F11.20 Opioid dependence, uncomplicated (principal)

== ENCOUNTER → 2020-12-25 | Outpatient (REF) | payer OTHER ==
[2020-12-25 17:53] LABS: HEMATOCRIT 35.4 % (36.0-47.0); HEMOGLOBIN 11.3 g/dl (12.0-15.5); MEAN CORPUSCULAR HGB CONC 31.9 g/dl (32.0-36.5); MEAN CORPUSCULAR VOLUME 87.8 fl (80.0-96.0); PLATELET COUNT, AUTOMATED 271 10^3/uL (150-450); RED BLOOD COUNT 4.03 10^6/uL (4.00-5.40); WHITE BLOOD COUNT 8.3 10^3/uL (4.0-10.0)
== END ==
LOC: M PLALAB 13:10
PROVIDERS: ATTEND Advanced Practice Midwife
DX: Z36.89 Encounter for other specified antenatal screening (principal); Z3A.24 24 weeks gestation of pregnancy

== ENCOUNTER → 2021-01-22 | Outpatient (CLI) | payer OTHER | LOC: M LAB 12:05 | PROVIDERS: ATTEND Family Medicine | DX: F11.10 Opioid abuse, uncomplicated (principal) | CPT/HCPCS: 36415; G0480 ==

== ENCOUNTER → 2021-01-23 | Outpatient (CLI) | payer OTHER | LOC: M LAB 08:10 | PROVIDERS: ATTEND Family Medicine | DX: F11.10 Opioid abuse, uncomplicated (principal) | CPT/HCPCS: 36415; G0480 ==

== ENCOUNTER → 2021-02-18 | Outpatient (REF) | payer OTHER | LOC: M PLALAB 11:14 | PROVIDERS: ATTEND Advanced Practice Midwife | DX: Z34.93 Encounter for supervision of normal pregnancy, unspecified, third trimester (principal); Z36.85 Encounter for antenatal screening for Streptococcus B ==

== ENCOUNTER 2021-02-24 22:23 | Inpatient (IN) | payer OTHER ==
[~2021-02-24] VITALS: Ht 167.6 cm; Wt 95.4 kg
[2021-02-24 22:29] VITALS: BP 129/76
[2021-02-24] MEDS ORDERED: OXYTOCIN INJ 10 UNITS/ML VIAL (J2590) As Ordered ONE (22:30)
[2021-02-24] MEDS ORDERED: OXYTOCIN 30 UNITS IN 0.9% NaCl 500ML IV BAG (J2590) As Ordered ONE (22:30)
[2021-02-24 22:55] LABS: HEMOGLOBIN 11.7 g/dl (12.0-15.5); MEAN CORPUSCULAR HEMOGLOBIN 25.7 pg (27.0-33.0); MEAN CORPUSCULAR HGB CONC 31.6 g/dl (32.0-36.5); MEAN CORPUSCULAR VOLUME 81.1 fl (80.0-96.0); PLATELET COUNT, AUTOMATED 291 10^3/uL (150-450); RED BLOOD COUNT 4.56 10^6/uL (4.00-5.40)
[2021-02-24 23:12] VITALS: BP 134/89
[2021-02-24] MEDS ORDERED: IBUPROFEN 800 MG TAB PO PRN (23:25)
[2021-02-24] MEDS ORDERED: METHYLERGONOVINE MALEATE 0.2 MG TAB PO PRN (23:25)
[2021-02-24] MEDS ORDERED: DIBUCAINE 1% OINTMENT 30GM TOP PRN (23:25)
[2021-02-24] MEDS ORDERED: DOCUSATE SODIUM 100MG CAPSULE PO PRN (23:25)
[2021-02-24] MEDS ORDERED: MEASLES,MUMPS,RUBELLA VACCINE INJ (MMR-II) (90707) SC SCH (23:25)
[2021-02-24] MEDS ORDERED: ACETAMINOPHEN 500 MG TAB PO PRN (23:25)
[2021-02-24] MEDS ORDERED: IBUPROFEN 600MG TAB PO PRN (23:25)
[2021-02-24] MEDS ORDERED: RHOGAM 300 MCG (1500 IU) INJ (J2790) IM SCH (23:25)
[2021-02-24] MEDS ORDERED: OXYTOCIN DRIP 30 UNITS in IV 1 EA IV SCH (23:25)
[2021-02-24] MEDS ORDERED: ACETAMINOPHEN TAB 650MG DOSE (2X325MG) PO PRN (23:25)
[2021-02-24 23:27] VITALS: BP 142/87
[2021-02-24 23:42] VITALS: BP 134/74
[2021-02-24 23:57] VITALS: BP 130/78
[2021-02-25 00:15] VITALS: BP 117/70
[2021-02-25] MEDS ORDERED: METH10CO PO ×2 (00:22)
[2021-02-25 00:41] VITALS: BP 129/76
[2021-02-25 01:00] VITALS: BP 117/77
[2021-02-25 06:00] VITALS: BP 124/74
--- NOTE | 2021-02-25 07:42 | HPE ---
HISTORY AND PHYSICAL DATE OF ADMISSION: 02/24/2021 HISTORY OF PRESENT ILLNESS: Chelsey is a 35-year-old female 5 para 2-0-2-2 who is admitted at 38 and 3/7th weeks gestation after presenting with complaints of contractions. She was found to be fully dilated in labor and delivery. She is receiving care at [facility] Patient does have a history of drug abuse for which she is on Methadone. Her care was brief, she did initiate care late in her . labs reviewed. She has a blood type of A positive, rubella immune. He does have a history of hepatitis C for which she was seeing Dr. Marinelli. Patient also has a history of gestational diabetes with her last . This , no history of diabetes. She was positive for chlamydia and trichomonas and was treated. PAST MEDICAL HISTORY: Significant for bipolar disorder, chronic hepatitis C, anxiety, depression, prior IV drug abuse. PAST SURGICAL HISTORY: Cholecystectomy. REVIEW OF SYSTEMS: Unremarkable. FAMILY HISTORY: Significant for chronic hypertension and diabetes. PHYSICAL EXAMINATION: Normal appearing female in no acute distress. She came into Labor and Delivery fully dilated and had a precipitous delivery with a retained placenta, possible placental accreta. ASSESSMENT: 1. An intrauterine at 38 and 3/7th weeks gestation in second phase of labor. 2. Chronic drug abuser on methadone. 3. History of hepatitis C. PLAN: Patient is being admitted to Labor and Delivery. She will have manual removal of the placenta. The note will be dictated separately. cc: [facility]
[2021-02-25] MEDS ORDERED: METHADONE 5 MG TAB (S0109) PO SCH (09:00)
[2021-02-25] MEDS ORDERED: PRENATAL VITAMINS CHEWABLE TABLET PO SCH (09:00)
--- NOTE | 2021-02-25 14:01 | DN ---
DELIVERY NOTE DATE OF DELIVERY: 02/24/2021 TIME OF : GENDER: Female. APGARS: 7 and 9. LACERATIONS: ANESTHESIA: ESTIMATED BLOOD LOSS: COUNTS: DESCRIPTION OF DELIVERY: Chelsey is a 35-year-old female, 5, para 2,0,2,2, who was admitted at 38-3/7 weeks gestation after presenting to labor and delivery fully dilated and pushing. She delivered shortly after precipitously a live female in her bed, nurse control. On my arrival the placenta was found to be adherent and on further exam questionable placental accreta was noted. At this point manual removal of the placenta was performed, good fundal massage was given. After removing the placenta good hemostasis was noted. Estimated blood loss 400 mL. Baby Apgars 7 and 9. weight 8 pounds 11 ounces. Both mother and baby in stable condition. cc: [facility]
== END 2021-02-25 07:00 | disposition left against medical advice (07) | DRG 541 ==
LOC: M LDO 22:23 → M LDI 22:25 → M OBS 02-25 00:55
PROVIDERS: ADMIT Obstetrics & Gynecology; ATTEND Obstetrics & Gynecology
PROC: 10E0XZZ Delivery of Products of Conception, External Approach (ICD-10-PCS; principal; 2021-02-24)
PROC: 10D17Z9 Manual Extraction of Products of Conception, Retained, Via Natural or Artificial Opening (ICD-10-PCS; 2021-02-24)
DX: O99.324 Drug use complicating childbirth (principal); O98.42 Viral hepatitis complicating childbirth; O62.3 Precipitate labor; Z3A.38 38 weeks gestation of pregnancy; O99.344 Other mental disorders complicating childbirth; F31.9 Bipolar disorder, unspecified; B18.2 Chronic viral hepatitis C; O73.0 Retained placenta without hemorrhage; O70.0 First degree perineal laceration during delivery; Z37.0 Single live birth; F11.11 Opioid abuse, in remission

== ENCOUNTER 2021-11-22 18:54 | Emergency (ER) | payer OTHER ==
[~2021-11-22] VITALS: Ht 167.6 cm; Wt 77.3 kg
[~2021-11-22 18:54] MED LIST changes: +METH10CO PO; +OLAN1TAB16 PO; -OLAN5TAB PO
[2021-11-22 19:08] VITALS: BP 129/77
== END 2021-11-22 21:57 | disposition left against medical advice (07) ==
LOC: M ED 18:54
DX: Z53.29 Procedure and treatment not carried out because of patient's decision for other reasons (principal)

== ENCOUNTER 2022-03-16 08:04 | Inpatient (IN) | payer MEDICAID, OTHER ==
[~2022-03-16] VITALS: Ht 154.9 cm; Wt 95.7 kg
[2022-03-16] MEDS ORDERED: NS 1,000 ML IV SCH (08:35)
[2022-03-16] MEDS ORDERED: CHARCOAL ACTIVATED LIQUID 25 GM/120 ML BTL PO ONE (08:40)
[2022-03-16] MEDS ORDERED: MAG SULF 1GM/100ML (MAG RUN) 1 GM in IV 1 EA IV ONE ×2 (09:00→10:00)
[2022-03-16] MEDS ORDERED: METOCLOPRAMIDE INJ 10MG/2ML VIAL (J2765 PER 1) IV ONE (09:05)
[2022-03-16 09:20] LABS: VENOUS BASE EXCESS 0.8 (-2.0-2.0); VENOUS HCO3 25.9 MEQ/L (23.0-27.0); VENOUS O2 SATURATION 99.3 % (60.0-80.0); VENOUS PARTIAL PRESSURE CO2 43.2 mmHg (38.0-50.0); VENOUS PARTIAL PRESSURE O2 159.1 mmHg (30.0-50.0); VENOUS PH 7.395 UNITS (7.330-7.430); VENOUS STANDARD HCO3 25.2 MEQ/L; VENOUS TOTAL CO2 27.2 MEQ/L (24.0-28.0)
[2022-03-16 09:31] LABS: BASO % 0.7 % (0.0-1.0); EOS # 0.1 10^3/uL (0.0-0.5); HEMATOCRIT 33.2 % (36.0-47.0); HEMOGLOBIN 10.6 g/dl (12.0-15.5); LYMPH # 1.7 10^3/uL (1.5-5.0); LYMPH % 28.6 % (24.0-44.0); MEAN CORPUSCULAR HEMOGLOBIN 25.3 pg (27.0-33.0); MEAN CORPUSCULAR HGB CONC 31.9 g/dl (32.0-36.5); MEAN CORPUSCULAR VOLUME 79.2 fl (80.0-96.0); MONO # 0.5 10^3/uL (0.0-0.8); NEUTROPHILS # 3.6 10^3/uL (1.5-8.5); NEUTROPHILS % 60.4 % (36.0-66.0); PLATELET COUNT, AUTOMATED 236 10^3/uL (150-450); RED BLOOD COUNT 4.19 10^6/uL (4.00-5.40)
[2022-03-16 09:43] LABS: RSV AMPLIFICATION NEGATIVE (NEGATIVE)
[2022-03-16 09:59] LABS: HCG, SERUM QUALITATIVE NEGATIVE (NEGATIVE)
[2022-03-16 10:04] LABS: ACETAMINOPHEN LEVEL < 2.0 UG/ML (10.0-30.0); ALBUMIN 2.9 GM/DL (3.2-5.2); ALT/SGPT 131 U/L (12-78); BILIRUBIN,DIRECT 0.3 MG/DL (0.0-0.2); BILIRUBIN,TOTAL 0.7 MG/DL (0.2-1.0); BLOOD UREA NITROGEN 14 MG/DL (7-18); CALCIUM LEVEL 8.7 MG/DL (8.5-10.1); CARBON DIOXIDE LEVEL 24 MEQ/L (21-32); CHLORIDE LEVEL 109 MEQ/L (98-107); CREATININE FOR GFR 0.82 MG/DL (0.55-1.30); ETHYL ALCOHOL (ETHANOL) < 0.003 % (0.000-0.010); GLOMERULAR FILTRATION RATE > 60.0 (>60); GLUCOSE, FASTING 132 MG/DL (70-100); POTASSIUM SERUM 4.4 MEQ/L (3.5-5.1); SALICYLATE LEVEL < 1.7 MG/DL (5.0-30.0); SODIUM LEVEL 140 MEQ/L (136-145); TOTAL PROTEIN 7.7 GM/DL (6.4-8.2)
[2022-03-16 10:05] LABS: OSMOLALITY SERUM 289 MOSM/KG (275-295)
[2022-03-16] MEDS ORDERED: PROZ20CA11 PO (10:38)
[2022-03-16] MEDS ORDERED: HYDR50TA70 PO (10:38)
[2022-03-16] MEDS: NS 1,000 ML IV SCH (14:10)
[2022-03-16] MEDS ORDERED: ACETAMINOPHEN TAB 650MG DOSE (2X325MG) PO PRN (14:10)
[2022-03-16] MEDS ORDERED: MOM 30ML SUSPENSION UDC PO PRN (14:10)
[2022-03-16] MEDS ORDERED: MAALOX 30 ML SUSP *UDC PO PRN (14:10)
[2022-03-16 14:14] LABS: AMPHETAMINES LEVEL URINE POSITIVE (NEGATIVE); BARBITURATES URINE NEGATIVE (NEGATIVE); BENZODIAZEPINES URINE NEGATIVE (NEGATIVE); CANNABINOIDS URINE POSITIVE (NEGATIVE); COCAINE METABOLITE URINE NEGATIVE (NEGATIVE); METHADONE URINE NEGATIVE (NEGATIVE); OPIATES URINE NEGATIVE (NEGATIVE); PHENCYCLIDINE URINE NEGATIVE (NEGATIVE)
[2022-03-16] MEDS ORDERED: FLUO40CA PO (14:21)
[2022-03-16] MEDS ORDERED: HOME MED LIST COMPLETE! XX SCH (15:05)
[2022-03-16 16:15] VITALS: BP 106/60
[2022-03-16 18:29] LABS: ALBUMIN 2.5 GM/DL (3.2-5.2); BILIRUBIN,DIRECT 0.4 MG/DL (0.0-0.2); BILIRUBIN,TOTAL 0.8 MG/DL (0.2-1.0); TOTAL PROTEIN 6.6 GM/DL (6.4-8.2)
[2022-03-16 20:00] VITALS: BP 104/62
[2022-03-16] MEDS: DOCUSATE SODIUM 100MG CAPSULE PO SCH (20:19)
[2022-03-17] VITALS: BP 123/70
[2022-03-17] MEDS: NS 1,000 ML IV SCH ×2 (00:39→06:50)
[2022-03-17 04:00] VITALS: BP 103/62
[2022-03-17 06:07] LABS: BASO % 0.4 % (0.0-1.0); EOS # 0.1 10^3/uL (0.0-0.5); EOS % 2.7 % (0.0-3.0); HEMATOCRIT 32.2 % (36.0-47.0); LYMPH # 1.5 10^3/uL (1.5-5.0); LYMPH % 33.3 % (24.0-44.0); MEAN CORPUSCULAR HEMOGLOBIN 24.7 pg (27.0-33.0); MEAN CORPUSCULAR HGB CONC 31.1 g/dl (32.0-36.5); MEAN CORPUSCULAR VOLUME 79.5 fl (80.0-96.0); MONO # 0.4 10^3/uL (0.0-0.8); MONO % 8.4 % (2.0-8.0); NEUTROPHILS # 2.5 10^3/uL (1.5-8.5); PLATELET COUNT, AUTOMATED 187 10^3/uL (150-450); RED BLOOD COUNT 4.05 10^6/uL (4.00-5.40); WHITE BLOOD COUNT 4.5 10^3/uL (4.0-10.0)
[2022-03-17 06:46] LABS: ALBUMIN 2.4 GM/DL (3.2-5.2); ALT/SGPT 115 U/L (12-78); BILIRUBIN,DIRECT 0.4 MG/DL (0.0-0.2); BILIRUBIN,TOTAL 0.8 MG/DL (0.2-1.0); BLOOD UREA NITROGEN 10 MG/DL (7-18); CALCIUM LEVEL 7.3 MG/DL (8.5-10.1); CARBON DIOXIDE LEVEL 24 MEQ/L (21-32); CHLORIDE LEVEL 111 MEQ/L (98-107); CREATININE FOR GFR 0.78 MG/DL (0.55-1.30); FREE T4 1.34 NG/DL (0.76-1.46); GLOMERULAR FILTRATION RATE > 60.0 (>60); GLUCOSE, FASTING 91 MG/DL (70-100); MAGNESIUM LEVEL 1.9 MG/DL (1.8-2.4); SODIUM LEVEL 140 MEQ/L (136-145); TOTAL PROTEIN 6.2 GM/DL (6.4-8.2)
[2022-03-17 08:00] VITALS: BP 110/59
[2022-03-17] MEDS: DOCUSATE SODIUM 100MG CAPSULE PO SCH ×2 (09:00→19:59)
[2022-03-17] MEDS: ENOXAPARIN 40MG/0.4ML SYRINGE (J1650 PER 10MG) SC SCH (09:26)
[2022-03-17 12:00] VITALS: BP 117/75
[2022-03-17 16:00] VITALS: BP 111/66
[2022-03-17 20:00] VITALS: BP 111/65
[2022-03-18] VITALS: BP 129/75
[2022-03-18 04:00] VITALS: BP 130/62
[2022-03-18 08:00] VITALS: BP 126/77
[2022-03-18] MEDS: DOCUSATE SODIUM 100MG CAPSULE PO SCH ×2 (08:13→20:09)
[2022-03-18] MEDS: ENOXAPARIN 40MG/0.4ML SYRINGE (J1650 PER 10MG) SC SCH (08:13)
[2022-03-18 09:07] LABS: BASO % 0.7 % (0.0-1.0); EOS # 0.2 10^3/uL (0.0-0.5); EOS % 3.3 % (0.0-3.0); HEMATOCRIT 36.9 % (36.0-47.0); HEMOGLOBIN 11.8 g/dl (12.0-15.5); LYMPH # 1.8 10^3/uL (1.5-5.0); LYMPH % 31.9 % (24.0-44.0); MEAN CORPUSCULAR HEMOGLOBIN 25.3 pg (27.0-33.0); MONO # 0.5 10^3/uL (0.0-0.8); NEUTROPHILS # 3.2 10^3/uL (1.5-8.5); NEUTROPHILS % 55.6 % (36.0-66.0); PLATELET COUNT, AUTOMATED 253 10^3/uL (150-450); RED BLOOD COUNT 4.67 10^6/uL (4.00-5.40); WHITE BLOOD COUNT 5.7 10^3/uL (4.0-10.0)
[2022-03-18 09:27] LABS: ALBUMIN 2.8 GM/DL (3.2-5.2); ALT/SGPT 124 U/L (12-78); BILIRUBIN,DIRECT 0.3 MG/DL (0.0-0.2); BILIRUBIN,TOTAL 0.6 MG/DL (0.2-1.0); BLOOD UREA NITROGEN 11 MG/DL (7-18); CALCIUM LEVEL 8.9 MG/DL (8.5-10.1); CARBON DIOXIDE LEVEL 25 MEQ/L (21-32); CHLORIDE LEVEL 108 MEQ/L (98-107); CREATININE FOR GFR 0.82 MG/DL (0.55-1.30); GLOMERULAR FILTRATION RATE > 60.0 (>60); GLUCOSE, FASTING 104 MG/DL (70-100); MAGNESIUM LEVEL 2.1 MG/DL (1.8-2.4); POTASSIUM SERUM 4.2 MEQ/L (3.5-5.1); SODIUM LEVEL 138 MEQ/L (136-145); TOTAL PROTEIN 7.7 GM/DL (6.4-8.2)
[2022-03-18 12:00] VITALS: BP 123/81
[2022-03-18 12:08] LABS: HEPATITIS B SURFACE ANTIGEN NEGATIVE (NEGATIVE)
[2022-03-18 12:36] LABS: HEPATITIS B CORE ANTIBODY IGM NEGATIVE (NEGATIVE)
[2022-03-18 12:44] LABS: HEPATITIS C VIRUS ABY INDEX > 11.0 INDEX (<0.8)
[2022-03-18 16:00] VITALS: BP 130/75
[2022-03-18 20:39] VITALS: BP 131/77
[2022-03-19] VITALS: BP 121/77
[2022-03-19 04:00] VITALS: BP 121/72
[2022-03-19 05:56] LABS: BASO # 0.1 10^3/uL (0.0-0.2); BASO % 0.9 % (0.0-1.0); EOS # 0.2 10^3/uL (0.0-0.5); HEMATOCRIT 38.3 % (36.0-47.0); HEMOGLOBIN 12.1 g/dl (12.0-15.5); LYMPH # 2.2 10^3/uL (1.5-5.0); LYMPH % 31.9 % (24.0-44.0); MEAN CORPUSCULAR HEMOGLOBIN 24.7 pg (27.0-33.0); MEAN CORPUSCULAR HGB CONC 31.6 g/dl (32.0-36.5); MEAN CORPUSCULAR VOLUME 78.2 fl (80.0-96.0); MONO # 0.6 10^3/uL (0.0-0.8); MONO % 8.7 % (2.0-8.0); NEUTROPHILS # 3.8 10^3/uL (1.5-8.5); NEUTROPHILS % 55.1 % (36.0-66.0); PLATELET COUNT, AUTOMATED 244 10^3/uL (150-450); WHITE BLOOD COUNT 6.9 10^3/uL (4.0-10.0)
[2022-03-19 06:28] LABS: ALBUMIN 2.8 GM/DL (3.2-5.2); ALT/SGPT 115 U/L (12-78); BILIRUBIN,DIRECT 0.2 MG/DL (0.0-0.2); BILIRUBIN,TOTAL 0.4 MG/DL (0.2-1.0); BLOOD UREA NITROGEN 12 MG/DL (7-18); CALCIUM LEVEL 9.1 MG/DL (8.5-10.1); CARBON DIOXIDE LEVEL 26 MEQ/L (21-32); CHLORIDE LEVEL 108 MEQ/L (98-107); GLOMERULAR FILTRATION RATE > 60.0 (>60); GLUCOSE, FASTING 91 MG/DL (70-100); POTASSIUM SERUM 3.7 MEQ/L (3.5-5.1); SODIUM LEVEL 139 MEQ/L (136-145); TOTAL PROTEIN 8.1 GM/DL (6.4-8.2)
[2022-03-19 08:00] VITALS: BP 116/68
[2022-03-19] MEDS: ENOXAPARIN 40MG/0.4ML SYRINGE (J1650 PER 10MG) SC SCH (08:38)
[2022-03-19] MEDS: DOCUSATE SODIUM 100MG CAPSULE PO SCH ×2 (08:38→20:24)
[2022-03-19 12:00] VITALS: BP 118/81
[2022-03-19 15:50] VITALS: BP 124/77
[2022-03-20] MEDS ORDERED: ABIL1INJ2 IM (12:18)
[2022-03-20] MEDS ORDERED: VIVI380I IM (12:24)
[2022-03-20] MEDS ORDERED: ABIL300I IM (12:29)
[2022-03-21] MEDS ORDERED: LAMI25TA PO (06:54)
== END 2022-03-20 00:54 | DRG 812 ==
LOC: EDBD 08:04 → M ED 08:04 → M ED INP 08:05 → ENRESERV 15:16 → M PCU 16:00 → OBSVTOIN 03-19 09:20
PROVIDERS: ADMIT Internal Medicine; ATTEND Internal Medicine
DX: T43.592A Poisoning by other antipsychotics and neuroleptics, intentional self-harm, initial encounter (principal); F31.9 Bipolar disorder, unspecified; K76.0 Fatty (change of) liver, not elsewhere classified; R94.31 Abnormal electrocardiogram [ECG] [EKG]; R74.01 Elevation of levels of liver transaminase levels; F16.10 Hallucinogen abuse, uncomplicated; F41.9 Anxiety disorder, unspecified; F60.3 Borderline personality disorder; F11.11 Opioid abuse, in remission; B18.2 Chronic viral hepatitis C; Z81.8 Family history of other mental and behavioral disorders; Z79.899 Other long term (current) drug therapy; Z63.0 Problems in relationship with spouse or partner; Z86.19 Personal history of other infectious and parasitic diseases

== ENCOUNTER 2022-03-19 20:54 | Inpatient (IN) | payer OTHER ==
[~2022-03-19] VITALS: Ht 165.1 cm; Wt 91.9 kg
[~2022-03-19 20:54] MED LIST changes: +FLUO40CA PO; +HYDR50TA70 PO; +PROZ20CA11 PO
[2022-03-19] MEDS ORDERED: ACETAMINOPHEN TAB 650MG DOSE (2X325MG) PO PRN (21:10)
[2022-03-19] MEDS ORDERED: traZODone 50 MG TAB PO PRN (21:10)
[2022-03-19] MEDS ORDERED: MAALOX 30 ML SUSP *UDC PO PRN (21:10)
[2022-03-19] MEDS ORDERED: MOM 30ML SUSPENSION UDC PO PRN (21:10)
[2022-03-20 00:55] VITALS: BP 121/87
[2022-03-20] MEDS ORDERED: hydrOXYzine 25 MG TAB PO PRN (10:35)
[2022-03-20] MEDS ORDERED: HOME MED LIST COMPLETE! XX SCH (11:15)
[2022-03-20] MEDS ORDERED: ABIL1INJ2 IM (12:18)
[2022-03-20] MEDS ORDERED: VIVI380I IM (12:24)
[2022-03-20] MEDS ORDERED: ABIL300I IM (12:29)
[2022-03-20] MEDS: lamoTRIgine 25MG TAB PO SCH ×2 (13:00→21:45)
[2022-03-20] MEDS ORDERED: ARIPiprazole MONOHYDRATE 400 MG INJ (ABILIFY)(FREE PSY INPT ONLY) IM ONE (14:15)
[2022-03-20] MEDS ORDERED: ARIPiprazole MONOHYDRATE 400 MG INJ (ABILIFY) PT CHG ONE IM (15:00)
[2022-03-20 17:13] VITALS: BP 133/84
[2022-03-21] MEDS ORDERED: LAMI25TA PO (06:54)
[2022-03-21 07:10] VITALS: BP 134/85
[2022-03-21] MEDS: lamoTRIgine 25MG TAB PO SCH (09:47)
== END 2022-03-21 13:40 | disposition home or self-care (01) | DRG 753 ==
LOC: M PSY 03-20 00:55
PROVIDERS: ADMIT Student in an Organized Health Care Education/Training Program; ATTEND Psychiatry & Neurology Psychiatry
DX: F31.9 Bipolar disorder, unspecified (principal); F11.10 Opioid abuse, uncomplicated; F16.10 Hallucinogen abuse, uncomplicated; F12.10 Cannabis abuse, uncomplicated; Z63.0 Problems in relationship with spouse or partner; Z91.52 Personal history of nonsuicidal self-harm; Z81.8 Family history of other mental and behavioral disorders

== ENCOUNTER 2022-04-30 16:55 | Emergency (ER) | payer OTHER ==
[~2022-04-30] VITALS: Ht 167.6 cm; Wt 101.0 kg
[~2022-04-30 16:55] MED LIST changes: +ABIL1INJ2 IM; +ABIL300I IM; +LAMI25TA PO
[2022-04-30 16:56] VITALS: BP 147/83
[2022-04-30 21:11] LABS: BASO % 0.6 % (0.0-1.0); EOS # 0.2 10^3/uL (0.0-0.5); EOS % 3.4 % (0.0-3.0); HEMATOCRIT 39.2 % (36.0-47.0); HEMOGLOBIN 11.7 g/dl (12.0-15.5); LYMPH # 1.9 10^3/uL (1.5-5.0); LYMPH % 35.7 % (24.0-44.0); MEAN CORPUSCULAR HEMOGLOBIN 25.8 pg (27.0-33.0); MEAN CORPUSCULAR HGB CONC 29.8 g/dl (32.0-36.5); MEAN CORPUSCULAR VOLUME 86.5 fl (80.0-96.0); MONO # 0.5 10^3/uL (0.0-0.8); MONO % 9.3 % (2.0-8.0); NEUTROPHILS # 2.7 10^3/uL (1.5-8.5); NEUTROPHILS % 50.6 % (36.0-66.0); PLATELET COUNT, AUTOMATED 199 10^3/uL (150-450); RED BLOOD COUNT 4.53 10^6/uL (4.00-5.40); WHITE BLOOD COUNT 5.3 10^3/uL (4.0-10.0)
[2022-04-30 21:44] LABS: BLOOD UREA NITROGEN 7 MG/DL (7-18); CALCIUM LEVEL 8.2 MG/DL (8.5-10.1); CARBON DIOXIDE LEVEL 23 MEQ/L (21-32); CHLORIDE LEVEL 107 MEQ/L (98-107); CREATININE FOR GFR 0.92 MG/DL (0.55-1.30); GLOMERULAR FILTRATION RATE > 60.0 (>60); GLUCOSE, FASTING 264 MG/DL (70-100); HCG, SERUM QUANTITATIVE < 1.0 MIU/ML; POTASSIUM SERUM 4.5 MEQ/L (3.5-5.1); SODIUM LEVEL 136 MEQ/L (136-145)
== END 2022-04-30 21:28 | disposition left against medical advice (07) ==
LOC: M ED 16:55
DX: Z53.9 Procedure and treatment not carried out, unspecified reason (principal); O46.90 Antepartum hemorrhage, unspecified, unspecified trimester

== ENCOUNTER 2022-05-02 04:31 | Emergency (ER) | payer OTHER ==
[~2022-05-02] VITALS: Ht 167.6 cm; Wt 81.8 kg
[2022-05-02 04:31] VITALS: BP 141/88
== END 2022-05-02 04:43 | disposition left against medical advice (07) ==
LOC: M ED 04:31
DX: Z53.29 Procedure and treatment not carried out because of patient's decision for other reasons (principal)

== ENCOUNTER 2022-11-13 09:43 | Emergency (ER) | payer OTHER ==
[~2022-11-13] VITALS: Ht 167.6 cm; Wt 90.3 kg
[2022-11-13 09:46] VITALS: BP 141/87
[2022-11-13] MEDS ORDERED: ABIL1INJ2 (09:54)
[2022-11-13 10:40] LABS: URINE PREG TEST NEGATIVE (NEGATIVE)
[2022-11-13 11:11] LABS: AMPHETAMINES LEVEL URINE NEGATIVE (NEGATIVE); BARBITURATES URINE NEGATIVE (NEGATIVE); BENZODIAZEPINES URINE NEGATIVE (NEGATIVE); CANNABINOIDS URINE NEGATIVE (NEGATIVE); COCAINE METABOLITE URINE NEGATIVE (NEGATIVE); METHADONE URINE NEGATIVE (NEGATIVE); OPIATES URINE NEGATIVE (NEGATIVE); PHENCYCLIDINE URINE NEGATIVE (NEGATIVE)
[2022-11-13 12:58] LABS: GC DNA AMPLIFICATION NEGATIVE (NEGATIVE)
== END 2022-11-13 12:12 | disposition left against medical advice (07) ==
LOC: M ED 09:43
DX: Z53.21 Procedure and treatment not carried out due to patient leaving prior to being seen by health care provider (principal)

== ENCOUNTER 2023-01-13 01:15 | Emergency (ER) | payer OTHER ==
[~2023-01-13] VITALS: Ht 167.6 cm; Wt 83.8 kg
[~2023-01-13 01:15] MED LIST changes: +ABIL1INJ2
[2023-01-13 01:51] LABS: APPEARANCE, URINE CLEAR (CLEAR); BACTERIA, URINE AUTO 1+ (NEGATIVE); BILIRUBIN, URINE AUTO NEGATIVE (NEGATIVE); BLOOD, URINE BLOOD NEGATIVE (NEGATIVE); COLOR, URINE STRAW (YELLOW); GLUCOSE, URINE (UA) AUTO 3+ mg/dL (NEGATIVE); KETONE, URINE AUTO NEGATIVE (NEGATIVE); LEUKOCYTE ESTERASE, URINE AUTO 1+ (NEGATIVE); NITRITE, URINE AUTO NEGATIVE (NEGATIVE); PROTEIN, URINE AUTO NEGATIVE (NEGATIVE); RBC, URINE AUTO 1 /HPF (0-3); SPECIFIC GRAVITY URINE AUTO 1.023 (1.002-1.035); SQUAMOUS EPITHELIAL CELL UR AU 0 /HPF (0-6); UROBILINOGEN, URINE AUTO 0.2 mg/dL (0.0-2.0); WBC, URINE AUTO 17 /HPF (0-3)
[2023-01-13 03:12] VITALS: BP 127/82
[2023-01-13] MEDS ORDERED: ACETAMINOPHEN TAB 650MG DOSE (2X325MG) PO ONE (03:15)
== END 2023-01-13 03:36 | disposition left against medical advice (07) ==
LOC: M ED 01:15
DX: M54.50 Low back pain, unspecified (principal); Z53.21 Procedure and treatment not carried out due to patient leaving prior to being seen by health care provider

== ENCOUNTER 2023-01-16 11:47 | Inpatient (IN) | payer OTHER ==
[~2023-01-16] VITALS: Ht 167.6 cm; Wt 95.7 kg
[2023-01-16 13:01] LABS: BASO % 0.4 % (0.0-1.0); EOS % 0.4 % (0.0-3.0); HEMATOCRIT 37.5 % (36.0-47.0); HEMOGLOBIN 11.8 g/dl (12.0-15.5); LYMPH # 1.6 10^3/uL (1.5-5.0); LYMPH % 16.5 % (24.0-44.0); MEAN CORPUSCULAR HEMOGLOBIN 24.7 pg (27.0-33.0); MEAN CORPUSCULAR HGB CONC 31.5 g/dl (32.0-36.5); MEAN CORPUSCULAR VOLUME 78.6 fl (80.0-96.0); MONO # 0.6 10^3/uL (0.0-0.8); NEUTROPHILS # 7.2 10^3/uL (1.5-8.5); NEUTROPHILS % 76.3 % (36.0-66.0); PLATELET COUNT, AUTOMATED 192 10^3/uL (150-450); RED BLOOD COUNT 4.77 10^6/uL (4.00-5.40); WHITE BLOOD COUNT 9.4 10^3/uL (4.0-10.0)
[2023-01-16 13:23] LABS: LIPASE 31 U/L (12-53)
[2023-01-16 13:36] LABS: HCG, SERUM QUALITATIVE NEGATIVE (NEGATIVE)
[2023-01-16 13:38] LABS: ALBUMIN 2.3 G/DL (3.2-5.2); ALKALINE PHOSPHATASE 178 U/L (46-116); ALT/SGPT 63 U/L (7.0-40); AST/SGOT 77 U/L (<34); BILIRUBIN,DIRECT 0.3 MG/DL (<0.4); BILIRUBIN,TOTAL 0.5 MG/DL (0.3-1.2); BLOOD UREA NITROGEN 12 MG/DL (9-23); CALCIUM LEVEL 8.5 MG/DL (8.5-10.1); CARBON DIOXIDE LEVEL 30 MMOL/L (20-31); CHLORIDE LEVEL 90 MMOL/L (98-107); CREATININE FOR GFR 0.49 MG/DL (0.55-1.30); GLOMERULAR FILTRATION RATE > 60.0 (>60); GLUCOSE, FASTING 684 MG/DL (60-100); POTASSIUM SERUM 4.1 MMOL/L (3.5-5.1); SODIUM LEVEL 126 MMOL/L (136-145); TOTAL PROTEIN 7.3 G/DL (5.7-8.2)
[2023-01-16] MEDS ORDERED: NS 1,000 ML IV ONE ×2 (13:50→18:25)
[2023-01-16] MEDS ORDERED: HumuLIN R (REGULAR) INSULIN (NovoLIN R) **100U/ML** PER UNIT IV ONE (13:50)
[2023-01-16] MEDS ORDERED: ISOVUE-370 76% 100ML VIAL As Ordered ONE (14:36)
[2023-01-16 14:41] LABS: BENZODIAZEPINES URINE NEGATIVE (NEGATIVE)
[2023-01-16 14:42] LABS: BARBITURATES URINE NEGATIVE (NEGATIVE); CANNABINOIDS URINE NEGATIVE (NEGATIVE); COCAINE METABOLITE URINE NEGATIVE (NEGATIVE); METHADONE URINE NEGATIVE (NEGATIVE); OPIATES URINE NEGATIVE (NEGATIVE); PHENCYCLIDINE URINE NEGATIVE (NEGATIVE)
[2023-01-16 14:56] LABS: AMPHETAMINES LEVEL URINE POSITIVE (NEGATIVE)
[2023-01-16 14:59] LABS: ETHYL ALCOHOL (ETHANOL) 0.004 % (0.000-0.010)
[2023-01-16 15:03] LABS: OSMOLALITY SERUM 306 MOSM/KG (275-295)
[2023-01-16 15:52] LABS: VENOUS BASE EXCESS 6.2 (-2.0-2.0); VENOUS HCO3 28.5 MEQ/L (23.0-27.0); VENOUS O2 SATURATION 99.2 % (60.0-80.0); VENOUS PARTIAL PRESSURE CO2 33.7 mmHg (38.0-50.0); VENOUS PARTIAL PRESSURE O2 163.9 mmHg (30.0-50.0); VENOUS PH 7.545 UNITS (7.330-7.430); VENOUS STANDARD HCO3 30.1 MEQ/L; VENOUS TOTAL CO2 29.5 MEQ/L (24.0-28.0)
[2023-01-16 17:29] LABS: HEMOGLOBIN A1c > 14.0 % (4.0-6.0)
[2023-01-16] MEDS ORDERED: RIVAROXABAN 10MG TAB (XARELTO) PO SCH (18:00)
[2023-01-16] MEDS ORDERED: LevoFLOXacin 750 MG TABLET PO SCH (18:00)
[2023-01-16] MEDS ORDERED: LEVEMIR (INSULIN DETEMIR) 1 UNITS/0.01ML SC ONE (18:20)
[2023-01-16] MEDS ORDERED: DEXTROSE 50% 50ML SYRINGE IV PRN (18:20)
[2023-01-16] MEDS ORDERED: GLUCAGON INJ 1MG VIAL SC PRN (18:20)
[2023-01-16] MEDS ORDERED: GLUCOSE 4GM CHEW TABLET PO PRN (18:20)
[2023-01-16 18:40] LABS: RSV AMPLIFICATION NEGATIVE (NEGATIVE)
[2023-01-16] MEDS: INSULIN LISPRO (NovoLOG) PER UNIT SC SCH (19:23)
[2023-01-16] MEDS: NS 1,000 ML IV SCH (19:34)
[2023-01-16] MEDS ORDERED: INSULIN LISPRO (NovoLOG) PER UNIT SC SCH (21:00)
[2023-01-16 21:19] LABS: BLOOD UREA NITROGEN 9 MG/DL (9-23); CALCIUM LEVEL 7.6 MG/DL (8.5-10.1); CARBON DIOXIDE LEVEL 28 MMOL/L (20-31); CHLORIDE LEVEL 100 MMOL/L (98-107); CREATININE FOR GFR 0.42 MG/DL (0.55-1.30); GLOMERULAR FILTRATION RATE > 60.0 (>60); GLUCOSE, FASTING 218 MG/DL (60-100); IRON (FE) 25 UG/DL (50-170); PERCENT SATURATION 8.4 % (13.2-45.0); POTASSIUM SERUM 3.3 MMOL/L (3.5-5.1); SODIUM LEVEL 135 MMOL/L (136-145); TOTAL IRON BINDING CAPACITY 299 UG/DL (250-425)
[2023-01-16 21:21] LABS: FERRITIN 101.3 NG/ML (7.3-270.7)
[2023-01-16 21:22] LABS: FOLATE 18.6 NG/ML (>5.4); VITAMIN B12 LEVEL 836 PG/ML (211-911)
[2023-01-16 21:32] LABS: HEPATITIS B SURFACE ANTIGEN NEGATIVE (NEGATIVE)
[2023-01-16 21:53] LABS: HEPATITIS B CORE ANTIBODY IGM NEGATIVE (NEGATIVE)
[2023-01-16 22:24] VITALS: BP 136/66
[2023-01-16 23:41] LABS: HEPATITIS C VIRUS ABY INDEX > 11.0 INDEX (<0.8)
[2023-01-17] MEDS ORDERED: POTASSIUM CHLORIDE 10MEQ SR TABLET PO ONE
[2023-01-17] MEDS: INSULIN LISPRO (NovoLOG) PER UNIT SC SCH (00:24)
[2023-01-17] MEDS: NS 1,000 ML IV SCH (02:25)
[2023-01-17] MEDS ORDERED: INSULIN LISPRO (NovoLOG) PER UNIT SC SCH (07:30)
== END 2023-01-17 03:56 | disposition left against medical advice (07) | DRG 420 ==
LOC: M ED 11:47 → M ED INP 18:07 → ENRESERV 21:03 → M MS5PR 22:25
PROVIDERS: ADMIT Internal Medicine; ATTEND Internal Medicine
DX: E11.65 Type 2 diabetes mellitus with hyperglycemia (principal); J69.0 Pneumonitis due to inhalation of food and vomit; E87.3 Alkalosis; F11.10 Opioid abuse, uncomplicated; N39.0 Urinary tract infection, site not specified; D50.9 Iron deficiency anemia, unspecified; B18.2 Chronic viral hepatitis C; F31.9 Bipolar disorder, unspecified; F41.9 Anxiety disorder, unspecified; E03.9 Hypothyroidism, unspecified; Z90.49 Acquired absence of other specified parts of digestive tract; Z79.899 Other long term (current) drug therapy

== ENCOUNTER 2023-06-26 21:36 | Emergency (ER) | payer OTHER ==
[~2023-06-26] VITALS: Ht 167.6 cm; Wt 77.8 kg
[2023-06-26 23:24] LABS: BASO % 0.6 % (0.0-1.0); EOS % 0.5 % (0.0-3.0); HEMATOCRIT 39.3 % (36.0-47.0); HEMOGLOBIN 13.1 g/dl (12.0-15.5); LYMPH # 2.5 10^3/uL (1.5-5.0); LYMPH % 37.8 % (24.0-44.0); MEAN CORPUSCULAR HEMOGLOBIN 27.3 pg (27.0-33.0); MEAN CORPUSCULAR HGB CONC 33.3 g/dl (32.0-36.5); MEAN CORPUSCULAR VOLUME 81.9 fl (80.0-96.0); MONO # 0.4 10^3/uL (0.0-0.8); MONO % 6.7 % (2.0-8.0); NEUTROPHILS # 3.6 10^3/uL (1.5-8.5); NEUTROPHILS % 54.1 % (36.0-66.0); PLATELET COUNT, AUTOMATED 158 10^3/uL (150-450); WHITE BLOOD COUNT 6.6 10^3/uL (4.0-10.0)
[2023-06-26 23:27] LABS: VENOUS BASE EXCESS 4.3 (-2.0-2.0); VENOUS HCO3 29.1 MMOL/L (23.0-27.0); VENOUS O2 SATURATION 96.8 % (60.0-80.0); VENOUS PARTIAL PRESSURE CO2 44.3 mmHg (38.0-50.0); VENOUS PH 7.436 UNITS (7.330-7.430); VENOUS STANDARD HCO3 28.3 MMOL/L; VENOUS TOTAL CO2 30.5 MMOL/L (24.0-28.0)
[2023-06-26] MEDS ORDERED: HumuLIN R (REGULAR) INSULIN (NovoLIN R) **100U/ML** PER UNIT IV ONE (23:50)
[2023-06-26 23:59] LABS: LIPASE 29 U/L (12-53)
[2023-06-27 00:01] LABS: ACETONE/KETONE 0.28 MMOL/L (0.02-0.27)
[2023-06-27 00:02] LABS: CPK CREATINE PHOSPHOKINASE 135 U/L (34-145)
[2023-06-27 00:13] LABS: ALBUMIN 3.2 G/DL (3.2-5.2); ALKALINE PHOSPHATASE 134 U/L (46-116); ALT/SGPT 224 U/L (7.0-40); AST/SGOT 234 U/L (<34); BILIRUBIN,DIRECT 0.8 MG/DL (<0.4); BILIRUBIN,TOTAL 1.4 MG/DL (0.3-1.2); BLOOD UREA NITROGEN 7 MG/DL (9-23); CALCIUM LEVEL 8.7 MG/DL (8.5-10.1); CARBON DIOXIDE LEVEL 29 MMOL/L (20-31); CHLORIDE LEVEL 96 MMOL/L (98-107); CK-MB VALUE MASS < 1.0 NG/ML (<3.6); GLOMERULAR FILTRATION RATE > 60.0 (>60); GLUCOSE, FASTING 404 MG/DL (60-100); MB/CK RELATIVE INDEX 0.74 (< OR =4); POTASSIUM SERUM 3.3 MMOL/L (3.5-5.1); SODIUM LEVEL 133 MMOL/L (136-145); TOTAL PROTEIN 8.1 G/DL (5.7-8.2)
[2023-06-27 00:20] LABS: OSMOLALITY SERUM 302 MOSM/KG (275-295)
[2023-06-27] MEDS ORDERED: NS 1,000 ML IV ONE ×2 (01:00)
[2023-06-27] MEDS ORDERED: POTASSIUM CHLORIDE 10MEQ SR TABLET PO ONE (02:55)
[2023-06-27] MEDS ORDERED: FOSFOMYCIN TROMETHAMINE 3 GM POWDER PACKET (MONUROL) PO ONE (02:55)
[2023-06-27] MEDS ORDERED: METF-839 PO (02:56)
[2023-06-27 03:39] VITALS: BP 130/79; TEMP 98.2; O2SAT 96
== END 2023-06-27 03:40 | disposition home or self-care (01) ==
LOC: M ED 21:36
DX: E11.65 Type 2 diabetes mellitus with hyperglycemia (principal); N39.0 Urinary tract infection, site not specified; G43.909 Migraine, unspecified, not intractable, without status migrainosus
CPT/HCPCS: 71045; 80048; 80076; 81001; 82010; 82550; 82553; 82803; 83036; 83690; 83930; 85025; 87040; 87088; 87186; 93005; 93041; 94760; 96374; 99285; J1815

== ENCOUNTER 2023-07-27 08:40 | Emergency (ER) | payer OTHER ==
[~2023-07-27] VITALS: Ht 167.6 cm; Wt 81.8 kg
[~2023-07-27 08:40] MED LIST changes: -ABIL1INJ2; +METF-839 PO
[2023-07-27] MEDS ORDERED: HumuLIN R (REGULAR) INSULIN (NovoLIN R) **100U/ML** PER UNIT IV ONE (11:45)
[2023-07-27] MEDS ORDERED: NS 1,000 ML IV ONE ×2 (11:45→13:25)
[2023-07-27 12:24] LABS: VENOUS BASE EXCESS -0.1 (-2.0-2.0); VENOUS HCO3 24.8 MMOL/L (23.0-27.0); VENOUS O2 SATURATION 99.3 % (60.0-80.0); VENOUS PARTIAL PRESSURE CO2 41.2 mmHg (38.0-50.0); VENOUS PARTIAL PRESSURE O2 177.9 mmHg (30.0-50.0); VENOUS PH 7.397 UNITS (7.330-7.430); VENOUS STANDARD HCO3 24.5 MMOL/L
[2023-07-27 12:32] LABS: BASO % 0.8 % (0.0-1.0); EOS # 0.1 10^3/uL (0.0-0.5); EOS % 1.4 % (0.0-3.0); HEMATOCRIT 40.6 % (36.0-47.0); HEMOGLOBIN 13.1 g/dl (12.0-15.5); LYMPH # 1.1 10^3/uL (1.5-5.0); LYMPH % 31.8 % (24.0-44.0); MEAN CORPUSCULAR HEMOGLOBIN 27.6 pg (27.0-33.0); MEAN CORPUSCULAR HGB CONC 32.3 g/dl (32.0-36.5); MEAN CORPUSCULAR VOLUME 85.5 fl (80.0-96.0); MONO # 0.3 10^3/uL (0.0-0.8); MONO % 7.2 % (2.0-8.0); NEUTROPHILS # 2.1 10^3/uL (1.5-8.5); NEUTROPHILS % 58.5 % (36.0-66.0); PLATELET COUNT, AUTOMATED 113 10^3/uL (150-450); RED BLOOD COUNT 4.75 10^6/uL (4.00-5.40); WHITE BLOOD COUNT 3.6 10^3/uL (4.0-10.0)
[2023-07-27 12:52] LABS: ETHYL ALCOHOL (ETHANOL) 0.004 % (0.000-0.010); LIPASE 48 U/L (12-53)
[2023-07-27 12:54] LABS: HEMOGLOBIN A1c 12.7 % (4.0-6.0)
[2023-07-27 12:55] LABS: ACETONE/KETONE 0.11 MMOL/L (0.02-0.27); ALBUMIN 2.9 G/DL (3.2-5.2); ALKALINE PHOSPHATASE 128 U/L (46-116); ALT/SGPT 187 U/L (7.0-40); AST/SGOT 190 U/L (<34); BILIRUBIN,DIRECT 0.4 MG/DL (<0.4); BILIRUBIN,TOTAL 0.6 MG/DL (0.3-1.2); TOTAL PROTEIN 7.4 G/DL (5.7-8.2)
[2023-07-27 13:02] LABS: OSMOLALITY SERUM 311 MOSM/KG (275-295)
[2023-07-27 15:31] LABS: RSV AMPLIFICATION NEGATIVE (NEGATIVE)
[2023-07-27 15:32] LABS: BLOOD UREA NITROGEN 12 MG/DL (9-23); CALCIUM LEVEL 8.8 MG/DL (8.5-10.1); CARBON DIOXIDE LEVEL 25 MMOL/L (20-31); CHLORIDE LEVEL 101 MMOL/L (98-107); CREATININE FOR GFR 0.43 MG/DL (0.55-1.30); GLOMERULAR FILTRATION RATE > 60.0 (>60); GLUCOSE, FASTING 659 MG/DL (60-100); POTASSIUM SERUM 4.3 MMOL/L (3.5-5.1); SODIUM LEVEL 131 MMOL/L (136-145)
[2023-07-27 15:34] LABS: BARBITURATES URINE NEGATIVE (NEGATIVE); CANNABINOIDS URINE NEGATIVE (NEGATIVE); METHADONE URINE NEGATIVE (NEGATIVE); OPIATES URINE NEGATIVE (NEGATIVE); PHENCYCLIDINE URINE NEGATIVE (NEGATIVE)
[2023-07-27 15:35] LABS: AMPHETAMINES LEVEL URINE NEGATIVE (NEGATIVE); BENZODIAZEPINES URINE NEGATIVE (NEGATIVE); COCAINE METABOLITE URINE POSITIVE (NEGATIVE)
[2023-07-27] MEDS ORDERED: metFORMIN (GLUCOPHAGE) 1000MG TABLET PO ONE (15:35)
[2023-07-27] MEDS ORDERED: METF10004 PO (15:47)
[2023-07-27 16:38] VITALS: BP 129/82; TEMP 96.7; O2SAT 97
== END 2023-07-27 16:42 | disposition home or self-care (01) ==
LOC: M ED 08:40
DX: E11.65 Type 2 diabetes mellitus with hyperglycemia (principal); R74.01 Elevation of levels of liver transaminase levels; F19.11 Other psychoactive substance abuse, in remission; Z86.19 Personal history of other infectious and parasitic diseases
CPT/HCPCS: 36415; 71045; 80048; 80076; 80307; 81001; 82010; 82077; 82803; 83036; 83605; 83690; 83930; 85025; 87086; 87631; 93005; 93041; 94760; 96361; 96374; 99285; J1815

== ENCOUNTER 2023-07-30 07:50 | Observation (INO) | payer OTHER ==
[~2023-07-30] VITALS: Ht 167.6 cm; Wt 77.2 kg
[~2023-07-30 07:50] MED LIST changes: +METF10004 PO
[2023-07-30 10:52] LABS: VENOUS BASE EXCESS -1.3 (-2.0-2.0); VENOUS O2 SATURATION 99.4 % (60.0-80.0); VENOUS PARTIAL PRESSURE CO2 29.4 mmHg (38.0-50.0); VENOUS PARTIAL PRESSURE O2 218.3 mmHg (30.0-50.0); VENOUS PH 7.471 UNITS (7.330-7.430); VENOUS STANDARD HCO3 23.4 MMOL/L; VENOUS TOTAL CO2 21.9 MMOL/L (24.0-28.0)
[2023-07-30 10:53] LABS: BASO # 0.1 10^3/uL (0.0-0.2); BASO % 0.8 % (0.0-1.0); EOS # 0.1 10^3/uL (0.0-0.5); HEMATOCRIT 48.3 % (36.0-47.0); HEMOGLOBIN 15.5 g/dl (12.0-15.5); LYMPH # 2.1 10^3/uL (1.5-5.0); LYMPH % 32.8 % (24.0-44.0); MEAN CORPUSCULAR HEMOGLOBIN 27.4 pg (27.0-33.0); MEAN CORPUSCULAR HGB CONC 32.1 g/dl (32.0-36.5); MEAN CORPUSCULAR VOLUME 85.3 fl (80.0-96.0); MONO # 0.5 10^3/uL (0.0-0.8); MONO % 7.7 % (2.0-8.0); NEUTROPHILS # 3.7 10^3/uL (1.5-8.5); NEUTROPHILS % 56.5 % (36.0-66.0); PLATELET COUNT, AUTOMATED 120 10^3/uL (150-450); RED BLOOD COUNT 5.66 10^6/uL (4.00-5.40); WHITE BLOOD COUNT 6.5 10^3/uL (4.0-10.0)
[2023-07-30 11:22] LABS: BLOOD UREA NITROGEN 11 MG/DL (9-23); CALCIUM LEVEL 8.9 MG/DL (8.5-10.1); CARBON DIOXIDE LEVEL 21 MMOL/L (20-31); CHLORIDE LEVEL 101 MMOL/L (98-107); CREATININE FOR GFR 0.44 MG/DL (0.55-1.30); GLOMERULAR FILTRATION RATE > 60.0 (>60); GLUCOSE, FASTING 483 MG/DL (60-100); POTASSIUM SERUM 4.9 MMOL/L (3.5-5.1); SODIUM LEVEL 131 MMOL/L (136-145)
[2023-07-30] MEDS ORDERED: HumuLIN R (REGULAR) INSULIN (NovoLIN R) **100U/ML** PER UNIT IV ONE ×2 (11:40→14:25)
[2023-07-30] MEDS ORDERED: NS 1,000 ML IV ONE (11:40)
[2023-07-30 12:58] LABS: ACETONE/KETONE 0.22 MMOL/L (0.02-0.27)
[2023-07-30 13:00] LABS: ALBUMIN 3.2 G/DL (3.2-5.2); BILIRUBIN,DIRECT 0.5 MG/DL (<0.4); BILIRUBIN,TOTAL 0.8 MG/DL (0.3-1.2); MAGNESIUM LEVEL 1.7 MG/DL (1.8-2.4); PHOSPHORUS LEVEL 3.1 MG/DL (2.5-4.9); TOTAL PROTEIN 8.1 G/DL (5.7-8.2)
[2023-07-30] MEDS ORDERED: INSULIN REGULAR IN 0.9 % NACL 100 UNIT in IV 1 EA IV SCH ×2 (14:25)
[2023-07-30] MEDS ORDERED: NS 1,000 ML IV SCH ×2 (14:25→18:25)
[2023-07-30] MEDS ORDERED: INSULIN IV RATE CHANGE DOCUMENTATION ML/HR XX SCH (14:25)
[2023-07-30 16:02] LABS: RSV AMPLIFICATION NEGATIVE (NEGATIVE)
[2023-07-30 17:20] VITALS: TEMP 97.9; O2SAT 96
[2023-07-30] MEDS ORDERED: DEXTROSE 50% 50ML SYRINGE IV PRN (18:25)
[2023-07-30] MEDS ORDERED: GLUCOSE 4GM CHEW TABLET PO PRN (18:25)
[2023-07-30] MEDS ORDERED: ACETAMINOPHEN TAB 650MG DOSE (2X325MG) PO PRN (18:25)
[2023-07-30] MEDS ORDERED: GLUCAGON INJ 1MG VIAL SC PRN (18:25)
[2023-07-30] MEDS ORDERED: MIRALAX *UNIT DOSE* 17GM PACKET PO PRN (18:35)
[2023-07-30] MEDS ORDERED: MAG SULF 1GM/100ML (MAG RUN) 1 GM in IV 1 EA IV ONE (18:45)
[2023-07-30 19:22] LABS: INR 1.17; PROTHROMBIN TIME 14.6 SECONDS (12.5-14.5)
[2023-07-30 19:23] LABS: PARTIAL THROMBOPLASTIN TIME 28.5 SECONDS (24.8-34.2)
[2023-07-30 19:37] VITALS: BP 122/68
[2023-07-30] MEDS ORDERED: METF10004 PO (19:38)
[2023-07-30] MEDS ORDERED: HOME MED LIST COMPLETE! XX SCH (19:40)
[2023-07-30 20:04] LABS: HEPATITIS B CORE ANTIBODY IGM NEGATIVE (NEGATIVE)
[2023-07-30 20:08] LABS: HEPATITIS C VIRUS ABY INDEX > 11.00 INDEX (<0.8)
[2023-07-30] MEDS ORDERED: FERROUS SULFATE 325MG TAB PO SCH (21:00)
[2023-07-30] MEDS ORDERED: ENOXAPARIN 40MG/0.4ML SYRINGE (J1650 PER 10MG) SC SCH (21:00)
[2023-07-30] MEDS ORDERED: LEVEMIR (INSULIN DETEMIR) 1 UNITS/0.01ML SC SCH (21:00)
[2023-07-30] MEDS ORDERED: DOCUSATE SODIUM 100MG CAPSULE PO SCH (21:00)
[2023-07-30] MEDS ORDERED: INSULIN LISPRO (NovoLOG) PER UNIT SC SCH (21:00)
[2023-07-30] MEDS ORDERED: CEPHALEXIN 500 MG CAP PO SCH (22:00)
[2023-07-31] MEDS ORDERED: INSULIN LISPRO (NovoLOG) PER UNIT SC SCH (07:30)
== END 2023-07-30 20:36 | disposition home or self-care (01) ==
LOC: M ED 07:50 → M ED INP 18:24
PROVIDERS: ADMIT Internal Medicine; ATTEND Internal Medicine
DX: E11.65 Type 2 diabetes mellitus with hyperglycemia (principal); R74.01 Elevation of levels of liver transaminase levels; Z86.19 Personal history of other infectious and parasitic diseases; R16.0 Hepatomegaly, not elsewhere classified; E87.1 Hypo-osmolality and hyponatremia; R35.0 Frequency of micturition; D50.9 Iron deficiency anemia, unspecified; F31.9 Bipolar disorder, unspecified; F41.9 Anxiety disorder, unspecified; F19.11 Other psychoactive substance abuse, in remission; E83.42 Hypomagnesemia; Z83.3 Family history of diabetes mellitus; Z82.49 Family history of ischemic heart disease and other diseases of the circulatory system; Z83.49 Family history of other endocrine, nutritional and metabolic diseases; Z79.84 Long term (current) use of oral hypoglycemic drugs
CPT/HCPCS: 36415; 76705; 80048; 80076; 81001; 82010; 82803; 83690; 83735; 83930; 84100; 85025; 85610; 85730; 86705; 86709; 86803; 87086; 87340; 87522; 87631; 96374; 96376; 99284; J1815; J3475

== ENCOUNTER 2025-07-30 19:50 | Emergency (ER) | payer OTHER ==
[~2025-07-30] VITALS: Ht 167.6 cm; Wt 65.9 kg
[~2025-07-30 19:50] MED LIST changes: +GABA-1172 PO; -GABA-282 PO; -IBUP-1022 PO; +IBUP600T42 PO; -PROZ20CA11 PO; +PROZ20CA12 PO
[2025-07-30] MEDS ORDERED: AMOX875T PO (23:58)
[2025-07-30] MEDS ORDERED: CETI10TA4 PO (23:58)
[2025-07-31 00:08] VITALS: BP 130/83; TEMP 98.9; O2SAT 96
== END 2025-07-31 00:13 | disposition home or self-care (01) ==
LOC: M ED 19:50
DX: H66.001 Acute suppurative otitis media without spontaneous rupture of ear drum, right ear (principal); B34.1 Enterovirus infection, unspecified; B18.2 Chronic viral hepatitis C; F19.10 Other psychoactive substance abuse, uncomplicated; Z79.2 Long term (current) use of antibiotics; Z79.84 Long term (current) use of oral hypoglycemic drugs; Z79.899 Other long term (current) drug therapy

== ENCOUNTER 2025-08-16 20:19 | Emergency (ER) | payer MEDICAID ==
[~2025-08-16] VITALS: Ht 170.2 cm; Wt 65.9 kg
[~2025-08-16 20:19] MED LIST changes: +AMOX875T PO; +CETI10TA4 PO
[2025-08-17] MEDS: IBUPROFEN 600 MG TAB PO ONE (01:45)
[2025-08-17 02:30] VITALS: O2SAT 98
[2025-08-17] MEDS ORDERED: METF10004 PO (02:31)
[2025-08-17 02:40] VITALS: BP 121/75; TEMP 98.3
== END 2025-08-17 02:53 | disposition home or self-care (01) ==
LOC: M ED 20:19
DX: J20.6 Acute bronchitis due to rhinovirus (principal); E11.9 Type 2 diabetes mellitus without complications; B18.2 Chronic viral hepatitis C; Z79.2 Long term (current) use of antibiotics; Z79.84 Long term (current) use of oral hypoglycemic drugs; Z79.899 Other long term (current) drug therapy